=== PATIENT | female | born 1945 | race Caucasian/White ===

== ENCOUNTER 2018-06-12 09:46 | Inpatient (IN) | payer OTHER ==
[~2018-06-12] VITALS: Ht 167.6 cm; Wt 111.7 kg
[~2018-06-12 09:46] MED LIST: AMIT25; ASPI81EC; CEPH250SUA PO; CIPR500 PO; EZET10-40; GABA300 PO; GLIM2; GLIM4; INSLI75/25; INSR10I; INSULANI; LEVSOD75 PO; METF500; METF500 PO; METO50; POLY17UD PO; PRAV20 PO; RAMI2.5; RANI150; RANI150 PO; RXCODACESY PO; RXPHEN200 PO; TRAM50 PO; VALSARTAN-HCTZ1 EAC4 PO
[2018-06-12] MEDS ORDERED: Humulin R500 UNIT/1 IJ (09:56)
[2018-06-12] MEDS ORDERED: IRBESARTAN300 MG PO (09:56)
[2018-06-12] MEDS ORDERED: ROSU10TA PO (09:57)
[2018-06-12] MEDS ORDERED: ERGO400 PO (09:57)
[2018-06-12 11:51] LABS: BASOPHILS ABSOLUTE AUTO 0.06 K/mm3 (0.00-0.23); BASOPHILS PERCENT AUTO 0 % (0-2); EOSINOPHILS ABSOLUTE AUTO 0.02 K/mm3 (0.00-0.68); EOSINOPHILS PERCENT AUTO 0 % (0-6); Hematocrit 35.4 % (33.0-51.0); Hemoglobin 11.1 g/dL (11.5-16.0); IMMATURE GRAN ABSOLUTE AUTO 0.14 K/mm3 (0.00-0.10); IMMATURE GRAN PERCENT AUTO 1 % (0-1); LYMPHOCYTES ABSOLUTE AUTO 2.08 K/mm3 (0.84-5.20); LYMPHOCYTES PERCENT AUTO 14 % (21-46); MONOCYTES ABSOLUTE AUTO 1.23 K/mm3 (0.16-1.47); MONOCYTES PERCENT AUTO 9 % (4-13); Mean Corpuscular HGB 28.2 pg (26.0-34.0); Mean Corpuscular HGB Conc 31.4 g/dL (31.5-36.5); Mean Corpuscular Volume 90 fL (80-100); Mean Platelet Volume 9.5 fL (9.1-12.4); NEUTROPHILS ABSOLUTE AUTO 10.87 K/mm3 (1.96-9.15); NEUTROPHILS PERCENT AUTO 76 % (41-73); Platelet Count 204 K/mm3 (150-400); RDW Coefficient Variation 14.8 % (11.7-14.2); RDW Standard Deviation 48.7 fL (35.1-46.3); Red Blood Cell Count 3.94 M/mm3 (3.80-5.20)
[2018-06-12 12:14] LABS: Albumin, Blood 3.4 g/dL (3.4-5.0); Albumin/Globulin Ratio 0.9 (0.8-1.8); Bilirubin, Total 0.6 mg/dL (0.1-1.0); Bun/Creatinine Ratio 17.5 (12.0-20.0); Calcium, Blood 8.8 mg/dL (8.5-10.1); Creatinine, Blood 0.97 mg/dL (0.40-1.00); Globulin, Blood 3.8 g/dL (2.2-4.0); Potassium, Blood 4.1 mmol/L (3.5-5.5); Total Protein, Blood 7.2 g/dL (6.4-8.2)
[2018-06-12 12:28] LABS: Source, Urine Catheter
[2018-06-12 12:37] LABS: Bilirubin, Urine Neg (Neg); Blood, Urine 3+ (Neg); Glucose Qualitative, Urine 4+ (Neg); Ketones, Urine Neg (Neg); Leukocyte Esterase, Urine 3+ (Neg); Nitrite, Urine Pos (Neg); Protein, Urine 2+ (Neg); Specific Gravity, Urine 1.015 (1.003-1.022); Urobilinogen, Urine NORM (Normal)
[2018-06-12 12:43] LABS: Appearance, Urine Cloudy (Clear); Color, Urine Yellow (P-Yellow)
[2018-06-12 12:45] LABS: Red Blood Cells, Urine 0-2 /hpf (0-2); White Blood Cells, Urine TNTC /hpf (0-5)
[2018-06-12 12:46] LABS: Bacteria Many /hpf; Squamous Epithelial Cells Few /hpf (Few)
--- NOTE | 2018-06-12 13:24 | NUR ---
PT ARRIVED TO THE ROOM AT APPROXIMATELY 1305. PT ALERT AND ORIENTED. PT RATES PAIN AT 4/10 AND DENIES NEED FOR PAIN MEDICATION. PT'S IS AT THE BEDSIDE. VSS. WILL CONTINUE TO MONITOR.
--- NOTE | 2018-06-12 15:23 | NUR ---
DR. KATHLEEN ESPINOSA ON PT AT THIS TIME.
--- NOTE | 2018-06-12 18:36 | NUR ---
SHIFT SUMMARY PT HAS NOT REQUIRED PAIN MEDICATION SINCE ARRIVAL FROM ER. SHE HAS REMAINED ALERT AND ORIENTED. USES CALL LIGHT APPROPRIATELY. VSS. WILL MONITOR UNTIL REPORT TO ONCOMING RN.
--- NOTE | 2018-06-13 02:20 | NUR ---
MEDICATED FOR PAIN AND REPOSITIONED. AGREED TO TRY ICE PACKS. SAFETY MEASURES IN PLACE. WILL CONTINUE TO MONIOR.
[2018-06-13 05:14] LABS: BASOPHILS ABSOLUTE AUTO 0.04 K/mm3 (0.00-0.23); BASOPHILS PERCENT AUTO 0 % (0-2); EOSINOPHILS ABSOLUTE AUTO 0.06 K/mm3 (0.00-0.68); EOSINOPHILS PERCENT AUTO 1 % (0-6); Hematocrit 31.3 % (33.0-51.0); Hemoglobin 9.5 g/dL (11.5-16.0); IMMATURE GRAN PERCENT AUTO 1 % (0-1); LYMPHOCYTES ABSOLUTE AUTO 2.85 K/mm3 (0.84-5.20); LYMPHOCYTES PERCENT AUTO 29 % (21-46); MONOCYTES ABSOLUTE AUTO 1.48 K/mm3 (0.16-1.47); MONOCYTES PERCENT AUTO 15 % (4-13); Mean Corpuscular HGB 28.2 pg (26.0-34.0); Mean Corpuscular HGB Conc 30.4 g/dL (31.5-36.5); Mean Platelet Volume 9.6 fL (9.1-12.4); NEUTROPHILS ABSOLUTE AUTO 5.46 K/mm3 (1.96-9.15); NEUTROPHILS PERCENT AUTO 55 % (41-73); Platelet Count 204 K/mm3 (150-400); RDW Coefficient Variation 15.3 % (11.7-14.2); RDW Standard Deviation 52.3 fL (35.1-46.3); Red Blood Cell Count 3.37 M/mm3 (3.80-5.20); White Blood Cell Count 9.99 K/mm3 (4.00-11.30)
[2018-06-13 05:17] LABS: Mean Corpuscular Volume 93 fL (80-100)
[2018-06-13 05:40] LABS: Bun/Creatinine Ratio 15.3 (12.0-20.0); Calcium, Blood 8.1 mg/dL (8.5-10.1); Creatinine, Blood 1.31 mg/dL (0.40-1.00); Potassium, Blood 4.6 mmol/L (3.5-5.5)
--- NOTE | 2018-06-13 05:59 | NUR ---
NO CHANGES THIS SHIFT. PAIN WELL MANAGED WITH PRN PAIN MEDS. INTERMITTENT CONFUSION NOTED, PT WOULD ASK MULTIPLE TIMES WITHIN A FEW MINUTES IF THE POWER WAS STILL OUT. RIGHT KNEE IMMOBILIZER IN PLACE, LEAL CATH STILL PATENT. DENIES PAIN, DISCOMFORT, OR FURTHER NEEDS AT THIS TIME. SAFETY MEASURES IN PLACE. WILL CONTINUE TO MONITOR.
--- NOTE | 2018-06-13 06:21 | NUR ---
INADEQUATE URINRY OUTPUT NOTED AT 250ML OF CLOUDY CONCENTRATED DARK ROSI URINE WITH SEDIMENT. WILL INFORM MD AND ONCOMING SHIFT.
--- NOTE | 2018-06-13 12:27 | NUR ---
PT REPORTS TAKING CARE OF OWN INSULIN, DOES NOT WANT ANY EXTRA INSULIN. FAMILY/FRIENDS PRESENT.
--- NOTE | 2018-06-13 16:22 | NUR ---
DR KELLOGG HERE TO SEE PT.
--- NOTE | 2018-06-13 18:02 | NUR ---
SHIFT SUMMARY PT EATING AND DRINKING WITHOUT DIFF. PT MANAGING OWN INSULIN WITH PT'S OWN INSULIN PUMP. DR WANG AND DR KELLOGG HERE TO SEE PT. PT DID NOT HAVE SURGERY TODAY POWER IS RUNNING ON GENERATORS TODAY. PT TO BE NPO AFTER MIDNIGHT IN HOPES THAT POWER WILL BE RESTORED BY TOMMORROW.
--- NOTE | 2018-06-13 20:20 | NUR ---
MEDICATED FOR PAIN PER MD ORDERS, SAFETY MEASURES IN PLACE. WILL CONTINUE TO MONITOR.
--- NOTE | 2018-06-14 04:05 | NUR ---
MEDICATED FOR PAIN PER MD ORDERS, SAFETY MEASURES IN PLACE. WILL CONTINUE TO MONITOR.
[2018-06-14 04:35] LABS: BASOPHILS ABSOLUTE AUTO 0.02 K/mm3 (0.00-0.23); BASOPHILS PERCENT AUTO 0 % (0-2); EOSINOPHILS PERCENT AUTO 1 % (0-6); Hematocrit 27.8 % (33.0-51.0); Hemoglobin 8.4 g/dL (11.5-16.0); IMMATURE GRAN PERCENT AUTO 1 % (0-1); LYMPHOCYTES ABSOLUTE AUTO 2.24 K/mm3 (0.84-5.20); LYMPHOCYTES PERCENT AUTO 28 % (21-46); MONOCYTES ABSOLUTE AUTO 1.39 K/mm3 (0.16-1.47); MONOCYTES PERCENT AUTO 17 % (4-13); Mean Corpuscular HGB 28.6 pg (26.0-34.0); Mean Corpuscular HGB Conc 30.2 g/dL (31.5-36.5); Mean Corpuscular Volume 95 fL (80-100); Mean Platelet Volume 9.1 fL (9.1-12.4); NEUTROPHILS PERCENT AUTO 52 % (41-73); Platelet Count 143 K/mm3 (150-400); RDW Coefficient Variation 15.7 % (11.7-14.2); RDW Standard Deviation 54.2 fL (35.1-46.3); Red Blood Cell Count 2.94 M/mm3 (3.80-5.20); White Blood Cell Count 8.05 K/mm3 (4.00-11.30)
--- NOTE | 2018-06-14 04:52 | NUR ---
NO CHANGES THIS SHIFT. PAIN WELL MANAGED WITH PRN PAIN MEDS. INTERMITTENT CONFUSION NOTED. RIGHT KNEE IMMOBILIZER IN PLACE, LEAL CATH STILL PATENT, SMALL AMOUNT OF THICK MEJIA LIQUID DRAINING TO GRAVITY. DENIES PAIN, DISCOMFORT, OR FURTHER NEEDS AT THIS TIME. SAFETY MEASURES IN PLACE. WILL CONTINUE TO MONITOR.
[2018-06-14 05:12] LABS: Bun/Creatinine Ratio 15.4 (12.0-20.0); Calcium, Blood 7.9 mg/dL (8.5-10.1); Creatinine, Blood 1.3 mg/dL (0.40-1.00); Potassium, Blood 4.4 mmol/L (3.5-5.5)
--- NOTE | 2018-06-14 12:03 | NUR ---
PT TO DAYSURGERY WITH DAYSURGERY STAFF. FAMILY PRESENT.
--- NOTE | 2018-06-14 14:10 | NUR ---
ASSUMED CARE OF PATIENT RECIEVED REPORT FROM Marie LUNA. NO CHANGE IN ASSESSMENT NEW CBG DONE AND RECORDED.
--- NOTE | 2018-06-14 17:34 | NUR ---
SHIFT SUMMARY PT OUT OF ROOM FOR PROCEDURE AT THIS TIME. PT BEEN ASSISTED WITH ADL'S PRN. PT BEEN REPOSITIONED. FAMILY BEEN IN TO SEE PT AND BROUGHT HOME MED WHICH WAS PLACED IN LOCKED DRAWER OUTSIDE OF ROOM AND NOTE PLACED ON PT'S PHONE WHICH WAS IN THE ROOM AND NOTE PLACED ON DOOR OF ROOM.
--- NOTE | 2018-06-14 19:25 | NUR ---
FT WAS BOTHERING PT SO IT WAS REPLACED WITH N/C BIOX DROPPED TO 86% SO I PLACE OXIMIZER AT 10L PT ABLE TO TOLERATE THIS AND BIOX NOW AT 93% DR MARTELL AWARE
[2018-06-15 05:09] LABS: BASOPHILS ABSOLUTE AUTO 0.01 K/mm3 (0.00-0.23); BASOPHILS PERCENT AUTO 0 % (0-2); EOSINOPHILS PERCENT AUTO 0 % (0-6); Hematocrit 25.4 % (33.0-51.0); Hemoglobin 7.6 g/dL (11.5-16.0); IMMATURE GRAN ABSOLUTE AUTO 0.05 K/mm3 (0.00-0.10); IMMATURE GRAN PERCENT AUTO 1 % (0-1); LYMPHOCYTES ABSOLUTE AUTO 1.01 K/mm3 (0.84-5.20); LYMPHOCYTES PERCENT AUTO 11 % (21-46); MONOCYTES ABSOLUTE AUTO 1.22 K/mm3 (0.16-1.47); MONOCYTES PERCENT AUTO 13 % (4-13); Mean Corpuscular HGB 28.1 pg (26.0-34.0); Mean Corpuscular HGB Conc 29.9 g/dL (31.5-36.5); Mean Corpuscular Volume 94 fL (80-100); Mean Platelet Volume 9.5 fL (9.1-12.4); NEUTROPHILS ABSOLUTE AUTO 6.93 K/mm3 (1.96-9.15); NEUTROPHILS PERCENT AUTO 75 % (41-73); Platelet Count 140 K/mm3 (150-400); RDW Coefficient Variation 15.2 % (11.7-14.2); RDW Standard Deviation 52.3 fL (35.1-46.3); White Blood Cell Count 9.22 K/mm3 (4.00-11.30)
[2018-06-15 05:25] LABS: Bun/Creatinine Ratio 14.5 (12.0-20.0); Calcium, Blood 8.1 mg/dL (8.5-10.1); Creatinine, Blood 1.1 mg/dL (0.40-1.00); Potassium, Blood 4.5 mmol/L (3.5-5.5)
--- NOTE | 2018-06-15 06:17 | NUR ---
NO CHANGES THIS SHIFT. PAIN WELL MANAGED WITH PRN PAIN MEDS, MEDICATED 2X THIS SHIFT. RIGHT KNEE IMMOBILIZER IN PLACE OVER KEVIN WRAP. DENIES PAIN, DISCOMFORT, OR FURTHER NEEDS AT THIS TIME. SAFETY MEASURES IN PLACE. WILL CONTINUE TO MONITOR.
--- NOTE | 2018-06-15 12:15 | NUR ---
DR. SHETTY NOTIFIED OF DECREASED H&H. ORDER RECIEVED FOR 1 UNIT PRBC. HOME INSULIN ROUTINE RESTARTED. WILL CONTINUE TO MONITOR.
--- NOTE | 2018-06-15 18:59 | NUR ---
SHIFT SUMMARY PAIN HAS BEEN MANAGED WITH PO PAIN MEDICATION THIS SHIFT. PT WAS ABLE TO STAND AT THE EDGE OF THE BED WITH A 2 PERSON MAX ASSIST. INTAKE IS ADEQUATE. VSS. WILL CONTINUE TO MONITOR UNTIL REPORT TO ONCOMING RN.
--- NOTE | 2018-06-16 00:30 | NUR ---
BP: PT BP TRENDING HYPO 80'S-90'S/30-50'S, HR 70'S. PT ASYMPTOMATIC. CALL PLACED TO MD, VITALS, UO, AND HX REV W/. NEW ORDER FOR IVF REC. WILL MED AND MONITOR.
[2018-06-16 05:16] LABS: BASOPHILS ABSOLUTE AUTO 0.04 K/mm3 (0.00-0.23); BASOPHILS PERCENT AUTO 0 % (0-2); EOSINOPHILS ABSOLUTE AUTO 0.05 K/mm3 (0.00-0.68); EOSINOPHILS PERCENT AUTO 1 % (0-6); Hematocrit 26.5 % (33.0-51.0); Hemoglobin 8.1 g/dL (11.5-16.0); IMMATURE GRAN ABSOLUTE AUTO 0.08 K/mm3 (0.00-0.10); IMMATURE GRAN PERCENT AUTO 1 % (0-1); LYMPHOCYTES ABSOLUTE AUTO 2.16 K/mm3 (0.84-5.20); LYMPHOCYTES PERCENT AUTO 21 % (21-46); MONOCYTES ABSOLUTE AUTO 1.31 K/mm3 (0.16-1.47); MONOCYTES PERCENT AUTO 13 % (4-13); Mean Corpuscular HGB Conc 30.6 g/dL (31.5-36.5); Mean Corpuscular Volume 92 fL (80-100); Mean Platelet Volume 9.9 fL (9.1-12.4); NEUTROPHILS ABSOLUTE AUTO 6.58 K/mm3 (1.96-9.15); NEUTROPHILS PERCENT AUTO 64 % (41-73); Platelet Count 172 K/mm3 (150-400); RDW Coefficient Variation 15.3 % (11.7-14.2); RDW Standard Deviation 51.8 fL (35.1-46.3); Red Blood Cell Count 2.89 M/mm3 (3.80-5.20); White Blood Cell Count 10.22 K/mm3 (4.00-11.30)
[2018-06-16 05:37] LABS: Calcium, Blood 8.3 mg/dL (8.5-10.1); Creatinine, Blood 1.47 mg/dL (0.40-1.00); Potassium, Blood 3.9 mmol/L (3.5-5.5)
--- NOTE | 2018-06-16 06:21 | NUR ---
POD 2 S/P RIGHT DISTAL FEMUR REPAIR. PT BP REMAINED HYPO T/O NIGHT; PT ASYMPTOMATIC, MD AWARE, IVF CONT PER ORDERS. O2 DEC TO 3-4L NC W/SATS 93%, WERE NOTED 86% ON RA; DEEP BREATHING AND I/S USE REINFORCED. DRESSING CDI, IMMOBILIZER IN PLACE. CAP REFILL WNL. BLOOD SUGAR NOTED 59 THIS AM, PT REP BLURRED VISION R/T LOW CBG. APPLE JUICE AND SNACK GIVEN, GLUCOSE NOTED INC TO 88 W/AM LAB DRAW, PT REP BLURRED VISION RESOLVED. PAIN MGD W/1 OXYCODONE W/REP RELIEF. PT REPOSITIONED FOR COMFORT. PLAN TO D/C LEAL CATH THIS AM. PT USING CALL LIGHT FOR ASSISTANCE, WILL CONT TO MONITOR UNTIL REP GIVEN TO ONCOMING RN.
--- NOTE | 2018-06-16 07:04 | NUR ---
URINE: PT URINE NOTED CRANBERRY COLORED W/PURULANT APPEARING DRNG THIS AM. URINE OUTPUT DEC, 250ML THIS SHIFT. PT IS NOTED TO HAVE CURRENT UTI W/ABX TX ORDERED. LEAL LEFT IN THIS AM FOR MD BOBBY. LIANNE RN AWARE.
--- NOTE | 2018-06-16 08:05 | NUR ---
BLOOD GLUCOSE BLOOD GLUCOSE OF 110 THIS AM. PT STATED THAT WAS TO LOW TO TAKE HER SCHEDULED DOSE OF [address] WANG WAS NOTIFIED. ORDER RECIEVED TO DECREASE BASAL RATE; PT WAS ABLE TO ACCOMPLISH THIS. INSULIN HELD THIS AM PER ORDER AND BOLUS DOSES DECREASED. WILL CONTINUE TO MONITOR.
--- NOTE | 2018-06-16 10:44 | NUR ---
DR. SHETTY NOTIFIED OF GENERALIZED EDEMA AND PURULENT URINE. WILL STRAIGHT CATH FOR URINE SAMPLE PER ORDER.
[2018-06-16 11:44] LABS: Source, Urine Catheter
[2018-06-16 11:47] LABS: Bilirubin, Urine Neg (Neg); Blood, Urine 5+ (Neg); Glucose Qualitative, Urine Neg (Neg); Ketones, Urine Neg (Neg); Leukocyte Esterase, Urine 3+ (Neg); Nitrite, Urine Neg (Neg); Protein, Urine 3+ (Neg); Urobilinogen, Urine NORM (Normal)
[2018-06-16 12:10] LABS: Appearance, Urine Hazy (Clear); Bacteria Few /hpf; Color, Urine Yellow (P-Yellow); Red Blood Cells, Urine TNTC /hpf (0-2); Squamous Epithelial Cells Not Seen /hpf (Few); White Blood Cells, Urine TNTC /hpf (0-5)
--- NOTE | 2018-06-16 17:47 | NUR ---
SHIFT SUMMARY PAIN HAS BEEN MANAGED WITH PO PAIN MEDICATION THIS SHIFT. PT WAS ABLE TO STAND AT THE EDGE OF THE BED WITH THERAPY TODAY, SHE WAS UNABLE TO TRANSFER TO THE CHAIR. THERAPY RECOMMENDED LIFT TRANSFER IN ORDER TO GET PT OOB. VSS. WILL MONITOR UNTIL REPORT TO ONCOMING RN.
--- NOTE | 2018-06-16 18:44 | NUR ---
VOID PT HAS VOIDED X1 SINCE CATHETER WAS REMOVED. ATTEMPTED TO OBTAIN PVR, UNABLE TO LOCATE BLADDER WITH BLADDER SCANNER DESPITE NUMEROUS ATTEMPTS. PT REPORTED FEELING LIKE SHE HAD EMPTIED HER BLADDER. WILL CONTINUE TO MONITOR.
[2018-06-17 04:37] LABS: BASOPHILS ABSOLUTE AUTO 0.04 K/mm3 (0.00-0.23); BASOPHILS PERCENT AUTO 1 % (0-2); EOSINOPHILS ABSOLUTE AUTO 0.19 K/mm3 (0.00-0.68); EOSINOPHILS PERCENT AUTO 2 % (0-6); Hemoglobin 7.8 g/dL (11.5-16.0); IMMATURE GRAN ABSOLUTE AUTO 0.16 K/mm3 (0.00-0.10); IMMATURE GRAN PERCENT AUTO 2 % (0-1); LYMPHOCYTES ABSOLUTE AUTO 1.99 K/mm3 (0.84-5.20); LYMPHOCYTES PERCENT AUTO 23 % (21-46); MONOCYTES ABSOLUTE AUTO 1.06 K/mm3 (0.16-1.47); MONOCYTES PERCENT AUTO 13 % (4-13); Mean Corpuscular HGB 28.1 pg (26.0-34.0); Mean Corpuscular Volume 94 fL (80-100); Mean Platelet Volume 8.9 fL (9.1-12.4); NEUTROPHILS ABSOLUTE AUTO 5.06 K/mm3 (1.96-9.15); NEUTROPHILS PERCENT AUTO 60 % (41-73); Platelet Count 178 K/mm3 (150-400); RDW Coefficient Variation 15.7 % (11.7-14.2); RDW Standard Deviation 54.1 fL (35.1-46.3); Red Blood Cell Count 2.78 M/mm3 (3.80-5.20)
[2018-06-17 04:56] LABS: Anion Gap 7 mmol/L (6-16); Blood Urea Nitrogen 24 mg/dL (8-24); Bun/Creatinine Ratio 20.3 (12.0-20.0); CO2, Blood 25 mmol/L (21-32); Chloride, Blood 111 mmol/L (98-108); Creatinine, Blood 1.18 mg/dL (0.40-1.00); Glomerular Filtration Rate 48 (60-); Glucose, Blood 167 mg/dL (70-99); Potassium, Blood 4.1 mmol/L (3.5-5.5); Sodium, Blood 143 mmol/L (136-145); Vancomycin, Random 11.7 ug/mL
--- NOTE | 2018-06-17 04:59 | NUR ---
SHIFT SUMMARY PT IS POD 3 R FEMUR PINNING. KNEE IMMOBILIZER IN PLACE. PT IS A&O, ABLE TO MAKE NEEDS KNOWN. MEDICATED FOR PAIN X1 PER EMAR. PT USES THE BEDPAN WITH ASSISTANCE. URINE IS LESS RED AND MORE ORANGE AT THIS TIME. PT MAINTAINING ON 4L VIA NC. NYSTATIN TO SKIN FOLDS. PT IS A LIFT FOR TRANSFERS. WILL CTM UNTIL PASS TO NEXT SHIFT.
--- NOTE | 2018-06-17 09:40 | NUR ---
DR. OH IN TO ROUND ON PT. NOTIFIED OF H+H. NEW ORDERS BEING PLACED.
--- NOTE | 2018-06-17 16:59 | NUR ---
SHIFT SUMMARY NO ACUTE CHANGES TODAY. VSS. PT DID RECEIVE 1 UNIT PRBCS FOR HEMOGLOBIN <7. RECEIVING 1 ROXICODONE FOR PAIN PRN. KNEE IMMOBILIZER IN PLACE AND DRESSINGS REMAIN CDI. PT UP WITH 2 MAX ASSIST USING GAIT BELT TO STAND PIVOT TO CHAIR TODAY. ON 4L NC TO MAINTAIN O2 GREATER THAN 90%. PLAN IS FOR SNF TOMORROW. PT USES CALL LIGHT APPROPRIATELY.
[2018-06-18 04:54] LABS: BASOPHILS ABSOLUTE AUTO 0.04 K/mm3 (0.00-0.23); BASOPHILS PERCENT AUTO 1 % (0-2); EOSINOPHILS ABSOLUTE AUTO 0.17 K/mm3 (0.00-0.68); EOSINOPHILS PERCENT AUTO 2 % (0-6); Hematocrit 28.6 % (33.0-51.0); Hemoglobin 8.7 g/dL (11.5-16.0); IMMATURE GRAN ABSOLUTE AUTO 0.22 K/mm3 (0.00-0.10); IMMATURE GRAN PERCENT AUTO 3 % (0-1); LYMPHOCYTES ABSOLUTE AUTO 1.91 K/mm3 (0.84-5.20); LYMPHOCYTES PERCENT AUTO 25 % (21-46); MONOCYTES ABSOLUTE AUTO 1.01 K/mm3 (0.16-1.47); MONOCYTES PERCENT AUTO 13 % (4-13); Mean Corpuscular HGB 28.3 pg (26.0-34.0); Mean Corpuscular HGB Conc 30.4 g/dL (31.5-36.5); Mean Corpuscular Volume 93 fL (80-100); Mean Platelet Volume 9.5 fL (9.1-12.4); NEUTROPHILS ABSOLUTE AUTO 4.36 K/mm3 (1.96-9.15); NEUTROPHILS PERCENT AUTO 57 % (41-73); Platelet Count 204 K/mm3 (150-400); RDW Coefficient Variation 15.1 % (11.7-14.2); RDW Standard Deviation 51.8 fL (35.1-46.3); Red Blood Cell Count 3.07 M/mm3 (3.80-5.20); White Blood Cell Count 7.71 K/mm3 (4.00-11.30)
--- NOTE | 2018-06-18 04:57 | NUR ---
SHIFT SUMMARY PT A&O X4 T/O SHIFT. VSS; NO ACUTE CHANGES. POD#4 R FEMORAL FX NAILING; DRESSING CDI; IMMOBILIZER TO RLE, PPPX4. PAIN MANGED PER EMAR. ICE TO RLE PT TOLERATED. 3.5L O2 VIA NC; PT DENIES SOB AT REST THIS AM. PT ABLE TO MAKE SLIGHT POSITIONAL ADJUSTMENTS IN BED INDEPENDENTLY. REPOSITIONED WITH ASSIST. BLOOD GLUCOSE MANGED PER ORDRES. CALL LIGHT IN REACH;PT DEMONSTRATES USE. WCTM UNTIL REPORT TO DAY SHIFT RN.
[2018-06-18 05:11] LABS: Albumin, Blood 2.2 g/dL (3.4-5.0); Anion Gap 6 mmol/L (6-16); Blood Urea Nitrogen 18 mg/dL (8-24); Bun/Creatinine Ratio 20.1 (12.0-20.0); CO2, Blood 27 mmol/L (21-32); Calcium, Blood 8.4 mg/dL (8.5-10.1); Chloride, Blood 111 mmol/L (98-108); Glomerular Filtration Rate >60 (60-); Glucose, Blood 156 mg/dL (70-99); Phosphorus, Blood 3.1 mg/dL (2.5-4.9); Potassium, Blood 3.8 mmol/L (3.5-5.5); Sodium, Blood 144 mmol/L (136-145)
--- NOTE | 2018-06-18 17:24 | NUR ---
SHIFT SUMMARY NO ACUTE CHANGES THIS SHIFT. IMMOBILIZER REMAINS IN PLACE AND DRESSING IS CDI. PT RECEIVING 1 ROXICODONE FOR PAIN PRN. PT WAS UP IN CHAIR FOR MOST OF SHIFT. 3 PERSON MAX ASSIST USING WALKER AND GAIT BELT TO STAND AND PIVOT WITH TRANSFER. VOIDING VIA BSC. BOWEL CARE STARTED THIS SHIFT. HOME O2 EVAL COMPLETE PER RT. PLAN IS FOR PT TO GO TO SNF TOMORROW. PT USES CALL LIGHT APPROPRIATELY.
--- NOTE | 2018-06-19 04:22 | NUR ---
SHIFT SUMMARY PT A&O X4 T/O SHIFT. NO ACUTE CHANGES. POD# 5 ORIF DISTAL FEMUR. DRESSING TO RLE CDI; IMMOBILIZER IN PLACE; PPPX4; BRISK CAP REFILL. PAIN MANGED PER EMAR. CONT. OXIMETRY IN PLACE. O2 VIA NC AT 4L; PT DENIES SOB. MEPILEX TO BILAT HEELS. CALL LIGHT IN REACH; PT DEMONSTRATES USE. WCTM UNTIL REPORT TO DAY SHIFT RN.
[2018-06-19 08:53] LABS: Vancomycin, Trough 11.8 ug/mL (5.0-10.0)
--- NOTE | 2018-06-19 13:15 | NUR ---
DISCHARGE: PT TRANSFER TO [facility] AT THIS TIME. IV DC'D WNL. PT HOME MEDS AND BELONGINGS SENT WITH HER. AT BEDSIDE. REPORT CALLED TO JEREMY PIERSON. PT LEFT VIA [facility].
== END 2018-06-19 13:15 | DRG 481 ==
LOC: ER 09:46 → SURS 11:07
PROVIDERS: Emergency Medicine; Family Medicine; Internal Medicine; Internal Medicine Endocrinology, Diabetes & Metabolism; Orthopaedic Surgery; ADMIT Internal Medicine
PROC: 0QS606Z Reposition Right Upper Femur with Intramedullary Internal Fixation Device, Open Approach (ICD-10-PCS; principal; 2018-06-14 11:45)
PROC: 30233N1 Transfusion of Nonautologous Red Blood Cells into Peripheral Vein, Percutaneous Approach (ICD-10-PCS; 2018-06-15)
DX: S72.301A Unspecified fracture of shaft of right femur, initial encounter for closed fracture (principal); D62 Acute posthemorrhagic anemia; N39.0 Urinary tract infection, site not specified; J98.11 Atelectasis; E11.65 Type 2 diabetes mellitus with hyperglycemia; E03.9 Hypothyroidism, unspecified; E78.5 Hyperlipidemia, unspecified; E88.81 Metabolic syndrome and other insulin resistance; G47.33 Obstructive sleep apnea (adult) (pediatric); I12.9 Hypertensive chronic kidney disease with stage 1 through stage 4 chronic kidney disease, or unspecified chronic kidney disease; E11.22 Type 2 diabetes mellitus with diabetic chronic kidney disease; N18.3 Chronic kidney disease, stage 3 (moderate); Z96.41 Presence of insulin pump (external) (internal); Z99.81 Dependence on supplemental oxygen; R09.02 Hypoxemia; Z68.38 Body mass index [BMI] 38.0-38.9, adult; E66.01 Morbid (severe) obesity due to excess calories; B96.1 Klebsiella pneumoniae [K. pneumoniae] as the cause of diseases classified elsewhere; W01.0XXA Fall on same level from slipping, tripping and stumbling without subsequent striking against object, initial encounter; Y92.002 Bathroom of unspecified non-institutional (private) residence as the place of occurrence of the external cause
CPT/HCPCS: 29505; 36415; 51702; 71045; 71046; 73502; 73552; 73560-RT; 80048; 80053; 80069; 80202; 81001; 82947; 83880; 85025; 86850; 86900; 86901; 86923; 87077; 87086; 87186; 93005; 93010; 94761; 94762; 96374-59; 97110; 97116; 97162; 97530; 99285-25; C1713; C1769; C9113; J0330; J0690; J1100; J1170; J1650; J1956; J2250; J2370; J2405; J3010; J3370; J3480; J7030; J7050; J7120; P9016

== ENCOUNTER → 2018-09-02 | Outpatient (CLI) | payer OTHER ==
[~2018-09-02] MED LIST changes: +ERGO400 PO; +Humulin R500 UNIT/1 IJ; +IRBESARTAN300 MG PO; +ROSU10TA PO
== END | disposition home or self-care (01) ==
LOC: LAB SHORT 08:30 → LAB EV 08:30
DX: R32 Unspecified urinary incontinence (principal)
CPT/HCPCS: 87077; 87086; 87186

== ENCOUNTER → 2022-08-12 | Outpatient (CLI) | payer OTHER ==
[2022-08-12 16:11] LABS: Alanine Aminotransfer (ALT/SGP 35 U/L (12-78); Albumin, Blood 3.2 g/dL (3.4-5.0); Albumin/Globulin Ratio 0.7 (0.8-1.8); Alk Phos 197 U/L (40-126); Anion Gap 10 mmol/L (6-16); Aspartate Aminotrans (AST/SGOT 23 U/L (12-37); Bilirubin, Total 0.4 mg/dL (0.1-1.0); Blood Urea Nitrogen 55 mg/dL (8-24); Bun/Creatinine Ratio 28.5 (12.0-20.0); CHOL/HDL RATIO 3.9; CO2, Blood 21 mmol/L (21-32); Calcium, Blood 8.9 mg/dL (8.5-10.1); Chloride, Blood 107 mmol/L (98-108); Cholesterol 77 mg/dL (50-200); Creatinine, Blood 1.93 mg/dL (0.40-1.00); Globulin, Blood 4.4 g/dL (2.2-4.0); Glomerular Filtration Rate 27 (60-); Glucose, Blood 147 mg/dL (70-99); HDL Cholesterol 20 mg/dL (>39); LDL/HDL RATIO 0.4; Low Density Lipoprotein Chol 8 mg/dL (<110); Potassium, Blood 5.2 mmol/L (3.5-5.5); Sodium, Blood 138 mmol/L (136-145); Thyroid Stimulating Hormone 1.592 uIU/mL (0.360-4.800); Total Protein, Blood 7.6 g/dL (6.4-8.2); Triglycerides 247 mg/dL (30-160); Very Low Density Lipoprot Chol 49 mg/dL (6-32)
[2022-08-12 17:50] LABS: Hematocrit 34.8 % (33.0-51.0); Hemoglobin 10.7 g/dL (11.5-16.0); Mean Corpuscular HGB 27.6 pg (26.0-34.0); Mean Corpuscular HGB Conc 30.7 g/dL (31.5-36.5); Mean Corpuscular Volume 90 fL (80-100); Mean Platelet Volume 8.6 fL (9.1-12.4); Platelet Count 375 K/mm3 (150-400); RDW Coefficient Variation 15.3 % (11.7-14.2); RDW Standard Deviation 50.4 fL (35.1-46.3); Red Blood Cell Count 3.88 M/mm3 (3.80-5.20); White Blood Cell Count 11.11 K/mm3 (4.00-11.30)
[2022-08-12 18:18] LABS: BASOPHILS PERCENT MAN 0 % (0-2); EOSINOPHILS ABSOLUTE MAN 0.22 K/mm3 (0.00-0.68); EOSINOPHILS PERCENT MAN 2 % (0-6); LYMPHOCYTES ABSOLUTE MAN 2.66 K/mm3 (0.84-5.20); LYMPHOCYTES PERCENT MAN 24 % (21-46); METAMYELOCYTE ABSOLUTE MAN 0.33 K/mm3 (0.00-0.00); METAMYELOCYTE PERCENT MAN 3 % (0-0); MONOCYTES ABSOLUTE MAN 0.88 K/mm3 (0.16-1.47); MONOCYTES PERCENT MAN 8 % (4-13); MYELOCYTE ABSOLUTE MAN 0.33 K/mm3 (0.00-0.00); MYELOCYTE PERCENT MAN 3 % (0-0); NEUTROPHILS ABSOLUTE MAN 6.66 K/mm3 (1.96-9.15); SEG NEUTROPHILS PERCENT MAN 60 % (41-73); TOTAL CELLS COUNTED 100
== END | disposition home or self-care (01) ==
LOC: LAB SHORT 15:47
PROVIDERS: Physician Assistant
DX: E11.65 Type 2 diabetes mellitus with hyperglycemia (principal); E11.3313 Type 2 diabetes mellitus with moderate nonproliferative diabetic retinopathy with macular edema, bilateral; E11.51 Type 2 diabetes mellitus with diabetic peripheral angiopathy without gangrene; E11.22 Type 2 diabetes mellitus with diabetic chronic kidney disease; E11.69 Type 2 diabetes mellitus with other specified complication; E11.49 Type 2 diabetes mellitus with other diabetic neurological complication; I10 Essential (primary) hypertension; Z79.4 Long term (current) use of insulin
CPT/HCPCS: 80053; 80061; 83036; 84443; 85025

== ENCOUNTER 2023-08-10 13:55 | Inpatient (IN) | payer OTHER ==
[~2023-08-10] VITALS: Ht 167.6 cm; Wt 95.0 kg
[~2023-08-10 13:55] MED LIST changes: +HUMULIN R500 UNIT/2; -Humulin R500 UNIT/1 IJ; -METO50; +METO50 PO
[2023-08-10] MEDS ORDERED: Insulin Regular 100 Unit/ML 1ML Dose IV ONE (15:25)
[2023-08-10] MEDS ORDERED: Sodium Bicarb 8.4% 1 MEQ/ML 50 ML Vial IV ONE (15:25)
[2023-08-10] MEDS ORDERED: Albuterol 2.5 MG/3 ML VIAL INH SCH (15:25)
[2023-08-10] MEDS ORDERED: Calcium Gluconate 10% 100 MG/ML INJ IV ONE (15:25)
[2023-08-10] MEDS ORDERED: Dextrose 50% 50 ML Syringe IV ONE (15:30)
[2023-08-10] MEDS ORDERED: Sodium Bicarb 8.4% Inj 100 MEQ in Sodium Chloride 0.45% 1,000 ML IV SCH (16:55)
[2023-08-10] MEDS ORDERED: Darbepoetin Alfa In Albumn Sol 40 MCG/0.4 ML SC SCH (18:00)
[2023-08-10] MEDS ORDERED: OXYB5 PO (18:44)
[2023-08-10] MEDS ORDERED: ROSU10TA PO (18:46)
--- NOTE | 2023-08-10 19:42 | NUR ---
NEW ADMIT PATIENT ADMITTED TO ROOM 301 FROM THE ER. PATIENT ARRIVED VIA WHEELCHAIR AND ONE PERSON TRANSPORT. PATIENT HAS PERSONAL WALKER.
[2023-08-10 19:48] VITALS: BP 129/52
[2023-08-10] MEDS ORDERED: OMEP20ER PO (20:19)
[2023-08-10] MEDS ORDERED: Aspir 8181 MG PO (20:21)
[2023-08-10] MEDS ORDERED: IRON18 MG PO (20:22)
[2023-08-10] MEDS ORDERED: Sodium Zirconium Cyclosilicate 10 GM Packet PO SCH (21:00)
--- NOTE | 2023-08-10 23:44 | NUR ---
HOSPITALIST CONTACTED HOSPITALIST CONTACTED FOR PATIENTS INSULIN PUMP. RADHA POTTER APPROVED FOR PATIENT TO HAVE HER INSULIN PUMP ON WITH THE USE OF BASAL RATE NOT BOLUS. CONTINUE TO MONITOR CBGs AC/HS AT THIS TIME.
[2023-08-11] VITALS (8 sets, daily range): BP systolic 111–142; BP diastolic 44–59
--- NOTE | 2023-08-11 04:21 | NUR ---
SHIFT SUMMARY. PATIENT IS AOX4, SBA TO BATHROOM, ADMITTED FOR HYPERKALEMIA. PATIENT REPORTS URINATING BLOOD. PATIENTS URINE HAS BEEN RED IN COLOR. PATIENT STATES SOB WITH EXERTION. PATIENT HAVING TREMORS THAT ARE IMPROVING SINCE ADMITTANCE TO THE FLOOR. PATIENT UP T/O NIGHT WITH DIFFICULTY SLEEPING; ASSESSED PATIENTS INSOMNIA-PATIENT REPORTS THAT SHE DOES NOT HAVE TROUBLE SLEEPING AND THAT SHE BELIEVES IT TO BE JUST BEING IN THE HOSPITAL. PATIENT DENIED A NEED FOR MEDICATION TO HELP WITH SLEEP. PATIENT DENIES PAIN. PATIENT IS PLEASANT AND COOPERATIVE WITH CARE. TELE IS ON WITH LEADS IN PLACE; PATIENT RUNNING SINUS RHYTHM IN THE 70'S. BED IS LOCKED IN THE LOWEST POSITION [facility] CALL LIGHT IN REACH. NO S/S OF DISTRESS. CARE IS ONGOING.
[2023-08-11 05:51] LABS: BASOPHILS ABSOLUTE AUTO 0.04 K/mm3 (0.00-0.23); BASOPHILS PERCENT AUTO 1 % (0-2); EOSINOPHILS ABSOLUTE AUTO 0.11 K/mm3 (0.00-0.68); EOSINOPHILS PERCENT AUTO 2 % (0-6); Hematocrit 19.4 % (33.0-51.0); IMMATURE GRAN ABSOLUTE AUTO 0.28 K/mm3 (0.00-0.10); IMMATURE GRAN PERCENT AUTO 4 % (0-1); LYMPHOCYTES PERCENT AUTO 25 % (21-46); MONOCYTES PERCENT AUTO 16 % (4-13); Mean Corpuscular HGB 26.8 pg (26.0-34.0); Mean Corpuscular HGB Conc 30.9 g/dL (31.5-36.5); Mean Corpuscular Volume 87 fL (80-100); Mean Platelet Volume 8.7 fL (9.1-12.4); NEUTROPHILS PERCENT AUTO 53 % (41-73); Platelet Count 280 K/mm3 (150-400); RDW Coefficient Variation 17.2 % (11.7-14.2); RDW Standard Deviation 54.4 fL (35.1-46.3); Red Blood Cell Count 2.24 M/mm3 (3.80-5.20); White Blood Cell Count 6.43 K/mm3 (4.00-11.30)
--- NOTE | 2023-08-11 06:23 | NUR ---
HOSPITALIST NOTIFIED [place] Hgb 6.0. DR. HOPE ORDERED FOR 1 UNIT OF PRBC. ORDER IN, BLOOD CONSENT SIGNED IN CHART.
[2023-08-11 06:33] LABS: Albumin, Blood 2.4 g/dL (3.4-5.0); Anion Gap 11 mmol/L (3-11); Blood Urea Nitrogen 74 mg/dL (8-24); Bun/Creatinine Ratio 24.3 (12.0-20.0); CO2, Blood 22 mmol/L (21-32); Calcium, Blood 8.6 mg/dL (8.5-10.1); Chloride, Blood 113 mmol/L (98-108); Creatinine, Blood 3.05 mg/dL (0.40-1.00); Glomerular Filtration Rate 15 (60-); Glucose, Blood 132 mg/dL (70-99); Magnesium, Blood 1.2 mg/dL (1.6-2.4); Phosphorus, Blood 4.4 mg/dL (2.5-4.9); Potassium, Blood 5.1 mmol/L (3.5-5.5); Sodium, Blood 141 mmol/L (136-145)
[2023-08-11] MEDS ORDERED: Sodium Bicarb 8.4% Inj 100 MEQ in Sodium Chloride 0.45% 1,000 ML IV SCH (08:10)
[2023-08-11] MEDS ORDERED: Heparin Sodium,Porcine 5,000 UNIT/0.5 ML SDV SC SCH (09:00)
[2023-08-11] MEDS ORDERED: Sodium Zirconium Cyclosilicate 10 GM Packet PO SCH (09:00)
[2023-08-11] MEDS ORDERED: NS 500 ML IV SCH (10:10)
[2023-08-11] MEDS ORDERED: IRBESARTAN150 M3 PO (12:10)
[2023-08-11] MEDS ORDERED: SYNTHROID88 MCG PO (12:11)
--- NOTE | 2023-08-11 15:39 | NUR ---
Upon receiving a referral for spiritual care, I visited the patient. Patient is lying in bed and alert. Her spouse Román is bedside. Patient tells me about her medical history, her current medical problems and the plan of care moving forward. Patient voices her fears about her slow decline in health and her hopes that she may have some really good yrs left. Román talks about his health issues, his career in [employer] and their family. Patient is pleasant and welcomes a prayer being said for her. They both express gratitude for the prayer and showed signs of a weight being lifted emotionally.
--- NOTE | 2023-08-11 18:06 | NUR ---
SUMMARY - PT A/O X4, SBA WITH WALKER RELATED TO IVF AND TELE. USES CALL LIGHT. HAS HAD HEMATURIA, VOIDING GOMEZ WITH SMALL CLOTS. LAST VOID AROUND 1300 AND PT COMPLAINING SHE FEELS THE URGE BUT UNABLE TO VOID. 1800 CHECKED TOILET, GOMEZ COLORED CLOT HALF DOLLER SIZE WITH SCANT URINE. BLADDER SCAN FOR 330ML. WILL NOTIFY . PT CONT WITH NAHCO3 AT 75ML/HR. DR MARTIN IS FOLLOWING. TELE SR 70'5. TOLERATING FOD ANF FLUID. LOW BLOD SUGAR THIS EVENING, GAVE PT PUDDING AND DINNER, WILL RECHECK. WILL REPORT TO NOC RN
[2023-08-11] MEDS ORDERED: Metoprolol Tartrate 25 MG Tab PO SCH (21:00)
[2023-08-12] VITALS (11 sets, daily range): BP systolic 109–148; BP diastolic 36–69
[2023-08-12] MEDS ORDERED: Dextrose 50% 50 ML Vial IV ONE (01:55)
[2023-08-12 05:10] LABS: Hemoglobin 6.5 g/dL (11.5-16.0)
[2023-08-12 06:05] LABS: Albumin, Blood 2.3 g/dL (3.4-5.0); Anion Gap 11 mmol/L (3-11); Blood Urea Nitrogen 63 mg/dL (8-24); Bun/Creatinine Ratio 23.3 (12.0-20.0); CO2, Blood 25 mmol/L (21-32); Calcium, Blood 8.1 mg/dL (8.5-10.1); Chloride, Blood 111 mmol/L (98-108); Glomerular Filtration Rate 18 (60-); Glucose, Blood 106 mg/dL (70-99); Magnesium, Blood 1.1 mg/dL (1.6-2.4); Phosphorus, Blood 3.5 mg/dL (2.5-4.9); Sodium, Blood 142 mmol/L (136-145)
[2023-08-12] MEDS ORDERED: Magnesium Sulf 2 GM/Water 50ML 50 ML IV ONE (06:20)
[2023-08-12] MEDS ORDERED: NS 1,000 ML IV SCH (06:30)
--- NOTE | 2023-08-12 07:41 | NUR ---
CONTINUING EDUCATION DIRECTOR SUMMARY PT A&O X 4, IRRITABLE AT TIMES. PT AMBULATING WITH WALKER AND STAND BY ASSIST TO BEDSIDE COMMODE. PT UP MULTIPLE TIMES THROUGH THE NIGHT TO USE BEDSIDE COMMODE. PT INCONTINANT IN HER BRIEF MAJORITY OF THE TIME BEFORE GETTING TO THE BEDSIDE COMMODE. PT VOIDS SHOWING RED URINE WITH CLOTS RANGING FROM A PENCIL ERASER TO A QUARTER SIZE. PT REPORTING THIS HAS BEEN GOING ON SINCE THE BEGINNING OF JULY AND DAY NURSE PREVIOUSLY REPORTED TO DR. GUY/B[place]. PT REPORTING THAT SHE FREQUENTLY FEELS THE NEED TO VOID BUT HAS ALREADY WENT IN HER BRIEF. SHE THEN SITS ON THE COMMODE GETTING FRUSTRATED THAT SHE ISNT PEEING IN THE COMMODE. SHE IS ALSO FRUSTRATED BY [facility] MULTIPLE LINES THAT NEED FREQUENT ADJUSTING DUE TO HER HAVING TO MOVE TO [facility] COMMODE. PT STOOL LIGHT BROWN, NON-FORMED AND SOFT. NO BLOOD NOTED IN STOOL. PT REPORTING THAT SHE CAN NOT CLEAN HERSELF AFTER VOIDING REQUIRING STAFF ASSISTANCE BUT IT WAS REPORTED BY DAY STAFF THAT SHE IS INDEPENDENT. BUTTOCKS RED AND BARRIER CREAM APPLIED. PT SHOWING NO S/S OF DISCOMFORT OR PAIN. PT SLEEPING BETWEEN VOIDS. PT ABDOMEN NON DISTENDED, NON TENDER, BOWEL TONES HYPOACTIVE. PT HAD A FALL AROUND 0200. PT REPORTS SHE STOOD FROM [facility] BEDSIDE COMMODE TO PULL UP HER BRIEF AND SHE FELL BACK DOWN ON [facility] BEDSIDE COMMODE AND IT SLID OUT FROM UNDER HER AND SHE SLID ONTO THE FLOOR. FALL OCCURED WHILE CBG WAS LOW WHILE WAITING FOR D/50. PT REPORTS SHE HAD FELT LIGHTHEADED WHEN SHE STOOD UP. PT DID NOT HAVE ANY INJURIES, DR. KHAN NOTIFIED, VITALS STABLE. PAST FALL ASSESSMENT AND IRIS COMPLETED. PT ALSO HAD A CRITICAL MAGNESIUM LEVEL OF 1.[address] KHAN NOTIFIED AND HE ORDERED MAGNESIUM. CBG PT BLOOD SUGAR LEVEL WAS 43 AT 1999. SHE REPORTED THAT SHE DID NOT EAT DINNER DUE TO A POOR APPETITE. CBG BEFORE DINNER WAS 69. PT GIVEN APPLE JUICE AND ORANGE JUICE, SHE DECLINED FOOD. CBG INCREASED TO 53. SHE THEN ASKED FOR AN ICE CREAM WHICH I BROUGHT FOR HER AND HER CBG INCREASED TO 72. PT REPORTS SHE CAN FEEL WHEN HER BLOOD SUGAR IS LOW BUT SHE DID NOT REPORT ANY SX PRIOR TO THE 1999 BLOOD SUGAR CHECK. PT DID REPORT NOT FEELING WELL AT 0130, CBG WAS 41. PT GIVEN ORANGE JUICE AND ANOTHER SNACK. PT INSULIN PUMP WAS REMOVED. DR KHAN NOTIFIED OF CBG AND REMOVING HER PUMP, HE ORDERED AN ADDITIONAL D/50 NOW AND WAS OK WITH PUMP REMOVAL. CBG INCREASED TO 132. 4/ MIKE ESTRADA RN
[2023-08-12] MEDS ORDERED: Irbesartan 150 MG Tab PO SCH (09:00)
--- NOTE | 2023-08-12 13:29 | NUR ---
PER DR. BROOKS CALVIN FOR PATIENT'S IRBESARTAN TO BE HELD THIS AM DUE TO BP. HE ALSO ADVISED FOR THE PATIENT TO GET AN ADDITIONAL 1 UNIT OF PRBC, A CT SCAN OF HER ABD/PELVIS (IMAGING DID NOT DO CONTRAST DUE TO KIDNEY FUNCTION), AND INFORMATION OFF OF INSULIN PUMP PROVIDED TO DR. GUY TO DETERMINE SETTINGS FOR INSULIN ADMINISTRATION FOR PATIENT. AWAITING ORDERS FOR PUMP/INSULIN ADMINISTRATION.
--- NOTE | 2023-08-12 16:22 | NUR ---
PER DR. GUY ADVISED TO PLACE PUMP BACK ON THE PATIENT. HE ALSO ADVISED TO CHANGE HER BASAL RATE SETTINGS TO 0.5/U/HR FOR THE ENTIRE 24 HRS. THESE SETTINGS WERE ADJUSTED AND PUMP CONNECTED BACK TO PATIENT.
--- NOTE | 2023-08-12 16:26 | NUR ---
Patient is lying in bed and alert. Patient explains about her many concerns and worries. I provide healthy distraction, levity and prayer. Patient and Román responded well and showed signs of an elevated mood.
--- NOTE | 2023-08-12 17:25 | NUR ---
SHIFT SUMMARY: PT IS AN ALERT AND ORIENTEDX4/SBA-1 PERSON ASSIST HERE FOR ELECTROLYTE IMBALANCES WELL HEMATURIA. SHE HAS BEEN GETTING NORMAL SALINE AT 50 ML/HR AND RECEIVED ANOTHER UNIT OF PRBC TODAYS; TOLERATED INFUSION WELL. SHE CONTINUES TO BE HEMATURIC AND PASSING CLOTS WITH FREQUENCY. SHE REPORTS FEELING WEAK AND FOGGY. SHE HAS LITTLE TO NO APPETITE AND RESTARTED HER INSULIN PUMP THIS AFTERNOON AFTER IT HAS BEEN D/C'D AROUND 0100. SEE NOTES ON PATIENT REGARDING INSULIN PUMP AND SETTINGS. MORE RECENT BLOOD SUGAR IS 176. DR. GUY NOTIFED. ADVISED TO HAVE PATIENT CONTINUING GETTING BASAL RATED INSULIN VIA PUMP WITH NEW SETTINGS AND MONITOR BLOOD SUGARS. PATIENT UNDERWENT A CT OF ABD/PELVIS TODAY WELL AND RESULTS PROVIDED TO DR. GUY. PATIENT DENIES PAIN, AND HAS BEEN MAKING HER NEEDS KNOWN, PLEASANT/COOPERATIVE. HER CALL LIGHT IS WITHIN REACH, SHE IS WATCHING TV, NO SIGNS OR SYMPTOMS OF DISTRESS, BED ALARM ON. PLAN OF CARE ONGOING.
[2023-08-12 17:59] LABS: Hematocrit 26.3 % (33.0-51.0); Hemoglobin 8.4 g/dL (11.5-16.0)
--- NOTE | 2023-08-12 23:10 | NUR ---
NURSE NOTE PATIENT IS CURRENTLY SLEEPING. TELEMONITOR ALERTED THIS RN THAT PATIENT DIPPED DOWN TO SINUS HAI- RATE 39 HEARTRATE. CALLED RADHA AND UPDATED PROVIDER. NO ADDITIONAL ORDERS AT THIS TIME.
--- NOTE | 2023-08-13 04:39 | NUR ---
SHIFT SUMMARY PATIENT IS ALERT AND ORIENTED. PATIENT HAS HAD NO ACUTE EVENTS THIS SHIFT. PATIENT HAS STILL HAS BLOOD IN THEIR URINE. PATIENTS HEART RATE HAS BEEN BRADYCARDIC THAT HAS DIPPED INTO THE 30S. PATIENT HAS NOT HAD ANY COMPLAINTS OF PAIN, NAUSEA, SOB OR VOMITTING THIS SHIFT. VITAL SIGNS REVIEWED. BED IN LOCKED AND LOWEST POSITION. CALL LIGHT IN PLACE. WILL MONITOR UNTIL SHIFT CHANGE.
[2023-08-13 05:06] VITALS: BP 118/52
--- NOTE | 2023-08-13 06:01 | NUR ---
NURSE NOTE PATIENT ALERTED THIS RN THAT HER BLOOD SUGAR FELT LOW. PATIENTS CBG WAS LOW AT 51. PATIENT WAS GIVEN SNACKS TO RAISE CBG. WILL RECHECK.
[2023-08-13 06:06] LABS: Hematocrit 23.2 % (33.0-51.0); Hemoglobin 7.4 g/dL (11.5-16.0)
[2023-08-13 06:26] LABS: Albumin, Blood 2.3 g/dL (3.4-5.0); Anion Gap 8 mmol/L (3-11); Blood Urea Nitrogen 48 mg/dL (8-24); Bun/Creatinine Ratio 20.4 (12.0-20.0); CO2, Blood 26 mmol/L (21-32); Calcium, Blood 8.7 mg/dL (8.5-10.1); Chloride, Blood 115 mmol/L (98-108); Creatinine, Blood 2.35 mg/dL (0.40-1.00); Glomerular Filtration Rate 21 (60-); Glucose, Blood 55 mg/dL (70-99); Magnesium, Blood 1.6 mg/dL (1.6-2.4); Phosphorus, Blood 3.1 mg/dL (2.5-4.9); Potassium, Blood 4.5 mmol/L (3.5-5.5); Sodium, Blood 144 mmol/L (136-145)
[2023-08-13 07:15] VITALS: BP 129/51
[2023-08-13 08:56] VITALS: BP 129/51
[2023-08-13] MEDS ORDERED: Sodium Zirconium Cyclosilicate 10 GM Packet PO SCH (09:00)
[2023-08-13] MEDS ORDERED: Acetaminophen 325 MG TABLET PO PRN (12:00)
--- NOTE | 2023-08-13 12:26 | NUR ---
DR. MARTIN CALLED REGARDING PATIENT'S CT SCAN. HE RECOMMENDED THAT THE PATIENT HAVE A LEAL CATHETER IS THE PATIENT IS AGREEABLE. THE PATIENT IS NOT. HE ALSO STATES THAT THE PATIENT HAS AN APPT WITH HIM AT HIS OFFICE ON 08/16/23 AT 1000 AND HE RECOMMENDS THAT THE PATIENT SEE UROLOGY OUTPATIENT. THIS INFORMATION WAS RELAYED TO DR. GUY. DR. GUY STATES THAT HE WILL DISCUSS WITH DR. MARTIN AND TO HAVE PATIENT'S IMAGES SENT TO UROLOGY AT [facility]. I ALSO DISCUSSED PATIENT'S BLOOD SUGARS WITH HAVING A LOW DURING PROGRAM FACILITATOR AND THAT SHE HAS BEEN IN THE 80'S THIS MORNING. PER DR. GUY ADJUST BASAL RATE SETTING ON INSULIN PUMP FROM 0.5UNITS/HR TO 0.4UNITS/HR. THESE SETTINGS WERE ADJUSTED WHILE DR. GUY WAS AT BEDSIDE.
[2023-08-13] MEDS ORDERED: Tamsulosin HCl 0.4 MG Cap PO SCH (14:00)
[2023-08-13] MEDS ORDERED: LOKELMA10 GM PO (14:52)
[2023-08-13] MEDS ORDERED: TAMS.4ER PO (14:53)
[2023-08-13] MEDS ORDERED: Miconazole Nitrate 2% 85 GM PWD TOP SCH (16:00)
--- NOTE | 2023-08-13 16:53 | NUR ---
DISCHARGE NOTE: IV AND TELE REMOVED AND LEAL PLACED. DISCHARGE DISCUSSED WITH PATIENT. HELPED HER GET DRESSED AND COLLECTED HER BELONGINGS. SHE WAS WHEELED DOWN BY THE RESTAURANT TEAM MEMBER AND MET HER AT THE [facility]. NO SIGNS OR SYMPTOMS OF DISTRESS DURING DISCHARGE.
== END 2023-08-13 16:33 | disposition home health service (06) | DRG 641 ==
LOC: ER 13:55 → MEDS 16:37
PROVIDERS: Internal Medicine Nephrology; ADMIT Family Medicine
PROC: 30233N1 Transfusion of Nonautologous Red Blood Cells into Peripheral Vein, Percutaneous Approach (ICD-10-PCS; principal; 2023-08-11)
DX: E87.5 Hyperkalemia (principal); N17.9 Acute kidney failure, unspecified; D62 Acute posthemorrhagic anemia; N13.2 Hydronephrosis with renal and ureteral calculous obstruction; N25.81 Secondary hyperparathyroidism of renal origin; E87.1 Hypo-osmolality and hyponatremia; E87.20 Acidosis, unspecified; I12.9 Hypertensive chronic kidney disease with stage 1 through stage 4 chronic kidney disease, or unspecified chronic kidney disease; E11.22 Type 2 diabetes mellitus with diabetic chronic kidney disease; N18.2 Chronic kidney disease, stage 2 (mild); E83.42 Hypomagnesemia; E78.5 Hyperlipidemia, unspecified; E86.9 Volume depletion, unspecified; D63.1 Anemia in chronic kidney disease; E11.42 Type 2 diabetes mellitus with diabetic polyneuropathy; E88.09 Other disorders of plasma-protein metabolism, not elsewhere classified; D89.2 Hypergammaglobulinemia, unspecified; M19.90 Unspecified osteoarthritis, unspecified site; G47.33 Obstructive sleep apnea (adult) (pediatric); E03.9 Hypothyroidism, unspecified; E66.9 Obesity, unspecified; K21.9 Gastro-esophageal reflux disease without esophagitis; Z96.41 Presence of insulin pump (external) (internal); R31.9 Hematuria, unspecified; Z88.8 Allergy status to other drugs, medicaments and biological substances; Z79.890 Hormone replacement therapy; Z79.899 Other long term (current) drug therapy; Z68.35 Body mass index [BMI] 35.0-35.9, adult; E78.2 Mixed hyperlipidemia; E11.51 Type 2 diabetes mellitus with diabetic peripheral angiopathy without gangrene; Z79.4 Long term (current) use of insulin; E11.49 Type 2 diabetes mellitus with other diabetic neurological complication; E66.01 Morbid (severe) obesity due to excess calories
CPT/HCPCS: 36415; 36430; 74176; 76770; 80053; 80061; 80069; 82306; 82947; 83036; 83735; 84132; 84443; 85014; 85018; 85025; 86850; 86900; 86901; 86923; 93005; 93010; 94644; 94664; 94762; 96374; 96375; 97162; 99284-25; A9270; J0612; J0881; J1815; J3475; J7030; J7040; J7799; P9016

== ENCOUNTER 2023-08-14 23:49 | Emergency (ER) | payer OTHER ==
[~2023-08-14] VITALS: Ht 165.1 cm; Wt 106.6 kg
[~2023-08-14 23:49] MED LIST changes: +Aspir 8181 MG PO; +IRBESARTAN150 M3 PO; +IRON18 MG PO; +LOKELMA10 GM PO; +OMEP20ER PO; +OXYB5 PO; +SYNTHROID88 MCG PO; +TAMS.4ER PO
[2023-08-15 02:51] VITALS: BP 124/88
== END 2023-08-15 02:55 | disposition home or self-care (01) ==
LOC: ER 23:49
DX: T83.098A Other mechanical complication of other urinary catheter, initial encounter (principal); E11.9 Type 2 diabetes mellitus without complications; E78.5 Hyperlipidemia, unspecified; Y73.8 Miscellaneous gastroenterology and urology devices associated with adverse incidents, not elsewhere classified; Z88.8 Allergy status to other drugs, medicaments and biological substances; Z79.4 Long term (current) use of insulin; Z79.890 Hormone replacement therapy; Z79.899 Other long term (current) drug therapy
CPT/HCPCS: 99283

== ENCOUNTER 2023-08-18 19:46 | Emergency (ER) | payer OTHER ==
[~2023-08-18] VITALS: Ht 167.6 cm; Wt 95.2 kg
[2023-08-18 20:46] LABS: BASOPHILS ABSOLUTE AUTO 0.04 K/mm3 (0.00-0.23); BASOPHILS PERCENT AUTO 0 % (0-2); EOSINOPHILS ABSOLUTE AUTO 0.14 K/mm3 (0.00-0.68); EOSINOPHILS PERCENT AUTO 1 % (0-6); Hematocrit 25.6 % (33.0-51.0); IMMATURE GRAN PERCENT AUTO 3 % (0-1); LYMPHOCYTES ABSOLUTE AUTO 1.63 K/mm3 (0.84-5.20); LYMPHOCYTES PERCENT AUTO 16 % (21-46); MONOCYTES ABSOLUTE AUTO 0.98 K/mm3 (0.16-1.47); MONOCYTES PERCENT AUTO 10 % (4-13); Mean Corpuscular HGB 28.8 pg (26.0-34.0); Mean Corpuscular HGB Conc 31.3 g/dL (31.5-36.5); Mean Corpuscular Volume 92 fL (80-100); Mean Platelet Volume 8.7 fL (9.1-12.4); NEUTROPHILS PERCENT AUTO 70 % (41-73); Platelet Count 277 K/mm3 (150-400); RDW Coefficient Variation 15.8 % (11.7-14.2); RDW Standard Deviation 52.1 fL (35.1-46.3); Red Blood Cell Count 2.78 M/mm3 (3.80-5.20); White Blood Cell Count 10.19 K/mm3 (4.00-11.30)
[2023-08-18 21:06] LABS: Albumin, Blood 2.6 g/dL (3.4-5.0); Albumin/Globulin Ratio 0.6 (0.8-1.8); Bilirubin, Total 0.4 mg/dL (0.1-1.0); Bun/Creatinine Ratio 16.6 (12.0-20.0); Calcium, Blood 8.6 mg/dL (8.5-10.1); Creatinine, Blood 2.23 mg/dL (0.40-1.00); Globulin, Blood 4.2 g/dL (2.2-4.0); Potassium, Blood 4.4 mmol/L (3.5-5.5); Total Protein, Blood 6.8 g/dL (6.4-8.2)
[2023-08-19 02:03] VITALS: BP 104/42
[2023-08-19 02:17] LABS: Source, Urine Foley catheter
[2023-08-19] MEDS ORDERED: CEPH500 PO (02:18)
[2023-08-19 02:41] LABS: Appearance, Urine Bloody (Clear); Bilirubin, Urine Neg (Neg); Blood, Urine 5+ (Neg); Color, Urine Red (P-Yellow); Glucose Qualitative, Urine Neg (Neg); Ketones, Urine Neg (Neg); Leukocyte Esterase, Urine 3+ (Neg); Nitrite, Urine Neg (Neg); Protein, Urine 4+ (Neg); Urobilinogen, Urine NORM (Normal)
[2023-08-19 03:04] LABS: Amorphous Light (0-Heavy); Bacteria Mod /hpf; Mucus Light (0-Heavy); Red Blood Cells, Urine TNTC /hpf (0-2); Squamous Epithelial Cells Few /hpf (Few); White Blood Cells, Urine 50-100 /hpf (0-5)
== END 2023-08-19 02:24 | disposition home or self-care (01) ==
LOC: ER 19:46
PROVIDERS: Emergency Medicine; Physician Assistant
DX: T83.511A Infection and inflammatory reaction due to indwelling urethral catheter, initial encounter (principal); Z88.8 Allergy status to other drugs, medicaments and biological substances; Z79.899 Other long term (current) drug therapy; Z79.4 Long term (current) use of insulin; E11.42 Type 2 diabetes mellitus with diabetic polyneuropathy
CPT/HCPCS: 51702; 80053; 81001; 85025; 87077; 87086; 87186; 99283-25

== ENCOUNTER → 2023-10-07 | Outpatient (CLI) | payer OTHER ==
[~2023-10-07] MED LIST changes: +ASPI81CH PO; +CEFDINIR300 M4 PO; +CEPH500 PO; +FOLI1 PO
[2023-10-07 13:04] LABS: Albumin, Blood 2.8 g/dL (3.4-5.0); Anion Gap 16 mmol/L (3-11); Blood Urea Nitrogen 54 mg/dL (8-24); Bun/Creatinine Ratio 20.6 (12.0-20.0); CO2, Blood 22 mmol/L (21-32); Chloride, Blood 108 mmol/L (98-108); Creatinine, Blood 2.62 mg/dL (0.40-1.00); Glomerular Filtration Rate 18 (60-); Glucose, Blood 190 mg/dL (70-99); Phosphorus, Blood 4.1 mg/dL (2.5-4.9); Potassium, Blood 5.4 mmol/L (3.5-5.5); Sodium, Blood 141 mmol/L (136-145)
== END ==
LOC: LAB SHORT → LAB 12:35 → LAB SHORT 12:47
PROVIDERS: Physician Assistant
DX: N18.4 Chronic kidney disease, stage 4 (severe) (principal)
CPT/HCPCS: 80069

== ENCOUNTER 2023-10-11 10:35 | Observation (INO) | payer OTHER ==
[~2023-10-11] VITALS: Ht 167.6 cm; Wt 91.6 kg
[~2023-10-11 10:35] MED LIST changes: -ASPI81CH PO; -CEFDINIR300 M4 PO; -FOLI1 PO
[2023-10-11] MEDS ORDERED: Ondansetron 4 MG TAB PO PRN (14:00)
[2023-10-11] MEDS ORDERED: Acetaminophen 325 MG TABLET PO PRN (14:00)
[2023-10-11 14:11] LABS: BASOPHILS ABSOLUTE AUTO 0.06 K/mm3 (0.00-0.23); BASOPHILS PERCENT AUTO 1 % (0-2); EOSINOPHILS ABSOLUTE AUTO 0.15 K/mm3 (0.00-0.68); EOSINOPHILS PERCENT AUTO 2 % (0-6); Hematocrit 35.5 % (33.0-51.0); Hemoglobin 10.6 g/dL (11.5-16.0); IMMATURE GRAN ABSOLUTE AUTO 0.11 K/mm3 (0.00-0.10); IMMATURE GRAN PERCENT AUTO 1 % (0-1); LYMPHOCYTES ABSOLUTE AUTO 3.16 K/mm3 (0.84-5.20); LYMPHOCYTES PERCENT AUTO 34 % (21-46); MONOCYTES ABSOLUTE AUTO 0.85 K/mm3 (0.16-1.47); MONOCYTES PERCENT AUTO 9 % (4-13); Mean Corpuscular HGB 26.8 pg (26.0-34.0); Mean Corpuscular HGB Conc 29.9 g/dL (31.5-36.5); Mean Corpuscular Volume 90 fL (80-100); Mean Platelet Volume 8.6 fL (9.1-12.4); NEUTROPHILS ABSOLUTE AUTO 5.04 K/mm3 (1.96-9.15); NEUTROPHILS PERCENT AUTO 54 % (41-73); Platelet Count 341 K/mm3 (150-400); RDW Coefficient Variation 16.6 % (11.7-14.2); RDW Standard Deviation 54.9 fL (35.1-46.3); Red Blood Cell Count 3.96 M/mm3 (3.80-5.20); White Blood Cell Count 9.37 K/mm3 (4.00-11.30)
[2023-10-11 14:15] LABS: Albumin, Blood 2.9 g/dL (3.4-5.0); Albumin/Globulin Ratio 0.6 (0.8-1.8); Bilirubin, Total 0.3 mg/dL (0.1-1.0); Bun/Creatinine Ratio 20.3 (12.0-20.0); Creatinine, Blood 2.66 mg/dL (0.40-1.00); Total Protein, Blood 7.9 g/dL (6.4-8.2)
[2023-10-11] MEDS ORDERED: CEFDINIR300 M4 PO (17:57)
[2023-10-11] MEDS ORDERED: ASPI81CH PO (17:58)
[2023-10-11 18:41] VITALS: BP 140/63
[2023-10-11] MEDS ORDERED: FOLI1 PO (19:40)
[2023-10-11 20:06] VITALS: BP 144/59
[2023-10-11] MEDS ORDERED: Insulin Pump Cartridge MISC SC SCH (20:10)
[2023-10-11] MEDS ORDERED: oxyBUTYnin chloride 5 MG TAB PO SCH (21:00)
[2023-10-11] MEDS ORDERED: Metoprolol Tartrate 50 MG Tab PO SCH (21:00)
[2023-10-12 05:02] LABS: BASOPHILS ABSOLUTE AUTO 0.05 K/mm3 (0.00-0.23); BASOPHILS PERCENT AUTO 1 % (0-2); EOSINOPHILS ABSOLUTE AUTO 0.23 K/mm3 (0.00-0.68); EOSINOPHILS PERCENT AUTO 3 % (0-6); Hematocrit 31.1 % (33.0-51.0); Hemoglobin 9.4 g/dL (11.5-16.0); IMMATURE GRAN ABSOLUTE AUTO 0.08 K/mm3 (0.00-0.10); IMMATURE GRAN PERCENT AUTO 1 % (0-1); LYMPHOCYTES ABSOLUTE AUTO 2.33 K/mm3 (0.84-5.20); LYMPHOCYTES PERCENT AUTO 32 % (21-46); MONOCYTES ABSOLUTE AUTO 0.79 K/mm3 (0.16-1.47); MONOCYTES PERCENT AUTO 11 % (4-13); Mean Corpuscular HGB 26.6 pg (26.0-34.0); Mean Corpuscular HGB Conc 30.2 g/dL (31.5-36.5); Mean Corpuscular Volume 88 fL (80-100); Mean Platelet Volume 8.9 fL (9.1-12.4); NEUTROPHILS ABSOLUTE AUTO 3.79 K/mm3 (1.96-9.15); NEUTROPHILS PERCENT AUTO 52 % (41-73); Platelet Count 311 K/mm3 (150-400); RDW Coefficient Variation 16.4 % (11.7-14.2); RDW Standard Deviation 52.6 fL (35.1-46.3); Red Blood Cell Count 3.54 M/mm3 (3.80-5.20); White Blood Cell Count 7.27 K/mm3 (4.00-11.30)
[2023-10-12 05:21] LABS: Albumin, Blood 2.6 g/dL (3.4-5.0); Albumin/Globulin Ratio 0.6 (0.8-1.8); Bilirubin, Total 0.4 mg/dL (0.1-1.0); Bun/Creatinine Ratio 21.9 (12.0-20.0); Calcium, Blood 8.8 mg/dL (8.5-10.1); Creatinine, Blood 2.37 mg/dL (0.40-1.00); Globulin, Blood 4.1 g/dL (2.2-4.0); Magnesium, Blood 1.6 mg/dL (1.6-2.4); Potassium, Blood 4.8 mmol/L (3.5-5.5); Total Protein, Blood 6.7 g/dL (6.4-8.2)
[2023-10-12] MEDS ORDERED: Levothyroxine Sodium 0.088 MG Tab PO SCH (06:00)
[2023-10-12] MEDS ORDERED: Omeprazole 20 MG CapCR PO SCH (06:00)
--- NOTE | 2023-10-12 06:06 | NUR ---
SUMMARY: PT A/OX4, CALLS APPROPRIATELY TO SPECIFY NEEDS AND IS PLEASANT AND COOPERATIVE W/CARE. SHE'S UP W/SBA AND FWW TO VOID AND URINE NOTED TO BE CLOUDY YELLOW W/MUCOUS. CX FAXED FOR POSS NEPHROSTOMY PLACEMENT. PT HAS IMPLANTED INSULIN PUMP DELIVERING A BASAL RATE AND COVERAGE PRN BID. SHE'S DENIED PAIN AND ALL OTHER COMPLAINTS. VSS/AFEBRILE, NO ACUTE CHANGES.
[2023-10-12 08:11] VITALS: BP 135/64
[2023-10-12] MEDS ORDERED: Folic Acid 1 MG TAB PO SCH (09:00)
[2023-10-12] MEDS ORDERED: Cholecalciferol 1000 Unit Tablet (=25MCG) PO SCH (09:00)
[2023-10-12] MEDS ORDERED: Enoxaparin 30 MG/0.3 ML SYR SC SCH (09:00)
[2023-10-12] MEDS ORDERED: Aspirin 81 MG Chew PO SCH (09:00)
[2023-10-12] MEDS ORDERED: D5W-1/2NS 1,000 ML IV SCH (10:05)
[2023-10-12 14:53] VITALS: BP 129/62
--- NOTE | 2023-10-12 16:13 | NUR ---
SHIFT SUMMARY: PATIENT IS PAIUTE-SHOSHONE BUT IS A&OX4. VS ARE WNL AND IS ON RA WITH >90% OXYGEN SATS. SHE IS A SBA WITH FWW AND GAIT BELT WITH AMBULATION. SHE IS VOIDING AND IS TOLERATING PO INTAKE BUT IS CURRENTLY NPO WAITING TO HEAR FROM DR. VALLE ON IF HE WILL PREFORM A PROCEDURE ON THE PATIENT LATER TODAY. PATIENT IS ON D5 1/2 NS AT A RATE OF 75 ML/HR DUE TO HER BEING NPO AT THIS TIME. PATIENT IS CURRENTLY LAYING IN BED WITH CALL LIGHT IN REACH. PATIENT CALLS APPROPRIATELY. IS AT BEDSIDE.
[2023-10-12] MEDS ORDERED: Heparin Sodium 1000 Units/ML 10ML MDV ONE (17:40)
[2023-10-12] MEDS ORDERED: NS 250 ML IV ONE ×2 (17:40→17:47)
--- NOTE | 2023-10-12 17:45 | NUR ---
PATIENT WAS WHEELCHAIRED DOWN TO CRYPTOLOGIC TECHNICIAN OPERATOR/ANALYST WITH CRYPTOLOGIC TECHNICIAN OPERATOR/ANALYST NURSE AND NARCOTICS AND/OR VICE DETECTIVE.
[2023-10-12] MEDS ORDERED: FentaNYL Citrate 50 MCG/ML 2 ML Injection ONE (17:48)
[2023-10-12] MEDS ORDERED: NS 500 ML IV ONE (17:48)
[2023-10-12] MEDS ORDERED: Midazolam HCl 1MG / ML 2ML Vial ONE (17:49)
[2023-10-12 19:45] VITALS: BP 124/53
[2023-10-13 03:31] VITALS: BP 109/47
--- NOTE | 2023-10-13 07:21 | NUR ---
SHIFT SUMMARY: PATIENT ORIENTED, COOPERATIVE, ANXIOUS. PATIENT WALKED TO BATHROOM WITH WALKER, PREFERRED SLEEPING ON CHAIR. PATIENT SLEPT FAIRLY DURING NIGHT.
[2023-10-13 07:42] VITALS: BP 129/52
[2023-10-13 09:10] LABS: BASOPHILS ABSOLUTE AUTO 0.04 K/mm3 (0.00-0.23); BASOPHILS PERCENT AUTO 0 % (0-2); EOSINOPHILS PERCENT AUTO 1 % (0-6); Hematocrit 33.4 % (33.0-51.0); Hemoglobin 10.1 g/dL (11.5-16.0); IMMATURE GRAN ABSOLUTE AUTO 0.09 K/mm3 (0.00-0.10); IMMATURE GRAN PERCENT AUTO 1 % (0-1); LYMPHOCYTES ABSOLUTE AUTO 1.76 K/mm3 (0.84-5.20); LYMPHOCYTES PERCENT AUTO 17 % (21-46); MONOCYTES ABSOLUTE AUTO 0.91 K/mm3 (0.16-1.47); MONOCYTES PERCENT AUTO 9 % (4-13); Mean Corpuscular HGB 26.6 pg (26.0-34.0); Mean Corpuscular HGB Conc 30.2 g/dL (31.5-36.5); Mean Corpuscular Volume 88 fL (80-100); Mean Platelet Volume 8.5 fL (9.1-12.4); NEUTROPHILS ABSOLUTE AUTO 7.27 K/mm3 (1.96-9.15); NEUTROPHILS PERCENT AUTO 72 % (41-73); Platelet Count 337 K/mm3 (150-400); RDW Coefficient Variation 16.8 % (11.7-14.2); RDW Standard Deviation 53.5 fL (35.1-46.3); White Blood Cell Count 10.17 K/mm3 (4.00-11.30)
[2023-10-13 09:27] LABS: Albumin, Blood 2.7 g/dL (3.4-5.0); Albumin/Globulin Ratio 0.6 (0.8-1.8); Bilirubin, Total 0.5 mg/dL (0.1-1.0); Bun/Creatinine Ratio 18.7 (12.0-20.0); Calcium, Blood 8.6 mg/dL (8.5-10.1); Creatinine, Blood 2.35 mg/dL (0.40-1.00); Globulin, Blood 4.5 g/dL (2.2-4.0); Total Protein, Blood 7.2 g/dL (6.4-8.2)
[2023-10-13] MEDS ORDERED: CefTRIAXone Sodium 1,000 MG in NS 100 ML IV SCH (12:00)
[2023-10-13 15:09] VITALS: BP 117/54
--- NOTE | 2023-10-13 17:12 | NUR ---
NO ACUTE CHANGES THIS SHIFT. RIGHT NEPHROSTOMY IS PUTTING OUT MORE THAN LEFT THIS SHIFT. PT IS ALERT AND ORIENTED X4 AND ABLE TO MAKE NEEDS KNOWN. PT REPORTS 2/10 PAIN ON THE LEFT SIDE NEPHROSTOMY SITE. DENIES PAIN IN CHEST AND SOB. PLAN TO DISCHARGE TOMORROW.
[2023-10-13 19:41] VITALS: BP 109/45
--- NOTE | 2023-10-14 04:16 | NUR ---
SHIFT SUMMARY PATIENT HAD NO ACUTE CHANGES. AXOX 4 AND SBA W/FWW TO BSC. DENIES CHEST PAIN, SOB, AND N/V. VSS/AFEBRILE. PIV INTACT. CBG 176. NEPROSTOMY LEFT & RIGHT TUBES DRAINING AND INTACT. WILL CALL APPROPRIATELY. SLEPT MOST OF THE SHIFT. CALL LIGHT IN REACH. BED IN LOWEST POSITION. WILL CONTINUE TO MONITOR UNTIL DAY SHIFT NURSE ASSUMES CARE.
[2023-10-14 05:18] LABS: BASOPHILS ABSOLUTE AUTO 0.02 K/mm3 (0.00-0.23); BASOPHILS PERCENT AUTO 0 % (0-2); EOSINOPHILS ABSOLUTE AUTO 0.21 K/mm3 (0.00-0.68); EOSINOPHILS PERCENT AUTO 3 % (0-6); Hematocrit 31.1 % (33.0-51.0); Hemoglobin 9.2 g/dL (11.5-16.0); IMMATURE GRAN ABSOLUTE AUTO 0.09 K/mm3 (0.00-0.10); IMMATURE GRAN PERCENT AUTO 1 % (0-1); LYMPHOCYTES ABSOLUTE AUTO 2.07 K/mm3 (0.84-5.20); LYMPHOCYTES PERCENT AUTO 25 % (21-46); MONOCYTES ABSOLUTE AUTO 0.96 K/mm3 (0.16-1.47); MONOCYTES PERCENT AUTO 12 % (4-13); Mean Corpuscular HGB 26.1 pg (26.0-34.0); Mean Corpuscular HGB Conc 29.6 g/dL (31.5-36.5); Mean Corpuscular Volume 88 fL (80-100); Mean Platelet Volume 8.4 fL (9.1-12.4); NEUTROPHILS ABSOLUTE AUTO 5.01 K/mm3 (1.96-9.15); NEUTROPHILS PERCENT AUTO 60 % (41-73); Platelet Count 300 K/mm3 (150-400); RDW Coefficient Variation 16.8 % (11.7-14.2); RDW Standard Deviation 53.6 fL (35.1-46.3); Red Blood Cell Count 3.53 M/mm3 (3.80-5.20); White Blood Cell Count 8.36 K/mm3 (4.00-11.30)
[2023-10-14 05:35] VITALS: BP 125/62
[2023-10-14 05:49] LABS: Albumin, Blood 2.5 g/dL (3.4-5.0); Albumin/Globulin Ratio 0.6 (0.8-1.8); Bilirubin, Total 0.3 mg/dL (0.1-1.0); Bun/Creatinine Ratio 18.6 (12.0-20.0); Calcium, Blood 8.4 mg/dL (8.5-10.1); Creatinine, Blood 2.36 mg/dL (0.40-1.00); Globulin, Blood 4.3 g/dL (2.2-4.0); Potassium, Blood 4.8 mmol/L (3.5-5.5); Total Protein, Blood 6.8 g/dL (6.4-8.2)
[2023-10-14 07:35] VITALS: BP 123/48
--- NOTE | 2023-10-14 15:11 | NUR ---
PT DISCHARGED HOME. SPOUSE AT BEDSIDE. SPOKE WITH [facility], PER [facility] THEY WILL FOLLOW UP WITH THE PT TO SCHEDULE FOLLOW UP. DISCHARGE INSTRUCTIONS DISCUSSED WITH PT. NO QUESTIONS AT THIS TIME
== END 2023-10-14 14:31 | disposition home or self-care (01) ==
LOC: ER 10:35 → MEDS 10:36
PROVIDERS: Nurse Practitioner; ADMIT Internal Medicine
DX: N13.2 Hydronephrosis with renal and ureteral calculous obstruction (principal); I12.9 Hypertensive chronic kidney disease with stage 1 through stage 4 chronic kidney disease, or unspecified chronic kidney disease; E11.22 Type 2 diabetes mellitus with diabetic chronic kidney disease; N18.4 Chronic kidney disease, stage 4 (severe); D63.1 Anemia in chronic kidney disease; N25.81 Secondary hyperparathyroidism of renal origin; E78.5 Hyperlipidemia, unspecified; E03.9 Hypothyroidism, unspecified; G47.33 Obstructive sleep apnea (adult) (pediatric); E55.9 Vitamin D deficiency, unspecified; Z79.82 Long term (current) use of aspirin; Z79.4 Long term (current) use of insulin; Z79.890 Hormone replacement therapy; Z79.899 Other long term (current) drug therapy
CPT/HCPCS: 36415; 50432; 76937; 80053; 82947; 83735; 85025; 96372; 96374; 96376; 99152; 99153; 99284; A9270; C1729; C1769; G0378; J0696; J1644; J1650; J2250; J3010; J7040; J7042; J7050; Q9967

== ENCOUNTER 2024-01-26 09:14 | Observation (INO) | payer OTHER ==
[~2024-01-26] VITALS: Ht 165.1 cm; Wt 89.5 kg
[~2024-01-26 09:14] MED LIST changes: +ASPIR 8181 M1 PO; +CEFDINIR300 M4 PO; -ERGO400 PO; +FOLI1 PO; +Vitamin D1000 UNI1
[2024-01-26 10:20] LABS: BASOPHILS ABSOLUTE AUTO 0.02 K/mm3 (0.00-0.23); BASOPHILS PERCENT AUTO 0 % (0-2); Base Excess Venous -7.9 mmol/L; Bicarbonate Venous 18.6 mmol/L (24.0-30.0); EOSINOPHILS ABSOLUTE AUTO 0.04 K/mm3 (0.00-0.68); EOSINOPHILS PERCENT AUTO 0 % (0-6); Hematocrit 35.2 % (33.0-51.0); Hemoglobin 10.9 g/dL (11.5-16.0); IMMATURE GRAN ABSOLUTE AUTO 0.06 K/mm3 (0.00-0.10); IMMATURE GRAN PERCENT AUTO 1 % (0-1); LYMPHOCYTES ABSOLUTE AUTO 2.05 K/mm3 (0.84-5.20); LYMPHOCYTES PERCENT AUTO 22 % (21-46); MONOCYTES ABSOLUTE AUTO 0.74 K/mm3 (0.16-1.47); MONOCYTES PERCENT AUTO 8 % (4-13); Mean Corpuscular HGB 26.5 pg (26.0-34.0); Mean Corpuscular Volume 86 fL (80-100); Mean Platelet Volume 9.3 fL (9.1-12.4); NEUTROPHILS ABSOLUTE AUTO 6.62 K/mm3 (1.96-9.15); NEUTROPHILS PERCENT AUTO 70 % (41-73); PCO2 Venous 36.4 mmHg (38-42); Platelet Count 166 K/mm3 (150-400); RDW Coefficient Variation 19.4 % (11.7-14.2); RDW Standard Deviation 60.3 fL (35.1-46.3); Red Blood Cell Count 4.11 M/mm3 (3.80-5.20); White Blood Cell Count 9.53 K/mm3 (4.00-11.30); pH Blood Venous 7.31 (7.34-7.37)
[2024-01-26 10:25] LABS: Albumin/Globulin Ratio 0.9 (0.8-1.8); Bilirubin, Total 0.6 mg/dL (0.1-1.0); Bun/Creatinine Ratio 19.3 (12.0-20.0); Calcium, Blood 8.1 mg/dL (8.5-10.1); Creatinine, Blood 1.61 mg/dL (0.40-1.00); Globulin, Blood 3.5 g/dL (2.2-4.0); Potassium, Blood 3.5 mmol/L (3.5-5.5); Total Protein, Blood 6.5 g/dL (6.4-8.2)
[2024-01-26 11:57] LABS: Influenza A, PCR NEGATIVE (NEGATIVE); Influenza B, PCR NEGATIVE (NEGATIVE); Resp Syncytial Virus, PCR NEGATIVE (NEGATIVE)
[2024-01-26 12:02] LABS: SARS-Cov-2 (COVID-19) PCR, MMC POSITIVE (NEGATIVE)
[2024-01-26] MEDS ORDERED: Acetaminophen 325 MG TABLET PO PRN (12:30)
[2024-01-26] MEDS ORDERED: FLU VACC TS2024-25(6MOS UP)/PF 45 MCG/0.5 ML SYRINGE IM SCH (12:30)
[2024-01-26] MEDS ORDERED: Dextrose 50% 50 ML Vial IV PRN (12:30)
[2024-01-26] MEDS ORDERED: Insulin Regular 100 Unit/ML 1ML Dose SC ONE (16:00)
[2024-01-26] MEDS ORDERED: Insulin Regular 100 UNIT/ML 10ML Vial SC SCH ×2 (16:30→21:55)
[2024-01-26 17:10] VITALS: BP 162/65
[2024-01-26 17:11] VITALS: BP 156/66
[2024-01-26] MEDS ORDERED: LOKELMA10 GM PO (17:23)
--- NOTE | 2024-01-26 18:42 | NUR ---
ER ADMIT. PT IS ALERT AND ORIENTED X4, INDEPENDENT WITH FWW, VERBALIZED WILL CALL NOT FALL. INSULIN PUMP NOT IN USE AND AT BEDSIDE. AC/HS MONITORING. PT USES 2L BLEED IN WITH CPAP OVERNIGHT
[2024-01-26 20:46] VITALS: BP 159/69
[2024-01-27 04:00] VITALS: BP 147/51
[2024-01-27 05:12] LABS: BASOPHILS PERCENT AUTO 0 % (0-2); EOSINOPHILS PERCENT AUTO 0 % (0-6); Hematocrit 34.1 % (33.0-51.0); Hemoglobin 10.4 g/dL (11.5-16.0); IMMATURE GRAN ABSOLUTE AUTO 0.04 K/mm3 (0.00-0.10); IMMATURE GRAN PERCENT AUTO 1 % (0-1); LYMPHOCYTES ABSOLUTE AUTO 0.69 K/mm3 (0.84-5.20); LYMPHOCYTES PERCENT AUTO 12 % (21-46); MONOCYTES ABSOLUTE AUTO 0.41 K/mm3 (0.16-1.47); MONOCYTES PERCENT AUTO 7 % (4-13); Mean Corpuscular HGB 25.9 pg (26.0-34.0); Mean Corpuscular HGB Conc 30.5 g/dL (31.5-36.5); Mean Corpuscular Volume 85 fL (80-100); Mean Platelet Volume 9.5 fL (9.1-12.4); NEUTROPHILS ABSOLUTE AUTO 4.72 K/mm3 (1.96-9.15); NEUTROPHILS PERCENT AUTO 81 % (41-73); Platelet Count 176 K/mm3 (150-400); RDW Coefficient Variation 18.8 % (11.7-14.2); RDW Standard Deviation 58.4 fL (35.1-46.3); Red Blood Cell Count 4.02 M/mm3 (3.80-5.20); White Blood Cell Count 5.86 K/mm3 (4.00-11.30)
[2024-01-27 05:46] LABS: Bun/Creatinine Ratio 22.6 (12.0-20.0); Calcium, Blood 8.5 mg/dL (8.5-10.1); Creatinine, Blood 1.46 mg/dL (0.40-1.00); Potassium, Blood 4.4 mmol/L (3.5-5.5)
[2024-01-27 08:25] VITALS: BP 147/56
[2024-01-27] MEDS ORDERED: oxyBUTYnin chloride 5 MG TAB PO SCH (09:00)
[2024-01-27] MEDS ORDERED: Folic Acid 1 MG TAB PO SCH (09:00)
[2024-01-27] MEDS ORDERED: Cholecalciferol 1000 Unit Tablet (=25MCG) PO SCH (09:00)
[2024-01-27] MEDS ORDERED: Enoxaparin 30 MG/0.3 ML SYR SC SCH (09:00)
[2024-01-27] MEDS ORDERED: Enoxaparin 40 MG/0.4 ML SYR SC SCH (09:00)
[2024-01-27] MEDS ORDERED: Metoprolol Tartrate 50 MG Tab PO SCH (09:00)
[2024-01-27] MEDS ORDERED: Aspirin 81 MG Chew PO SCH (09:00)
[2024-01-27] MEDS ORDERED: Insulin Pump Cartridge MISC SC SCH (09:15)
[2024-01-27] MEDS ORDERED: ROSUVASTATIN CA10 MG PO (10:03)
[2024-01-27] MEDS ORDERED: Rosuvastatin Calcium 10 MG Tab PO SCH (10:05)
--- NOTE | 2024-01-27 14:19 | NUR ---
DISCHARGE NOTE: WENT OVER DISCHARGE WITH PATIENT. SHE GOT HERSELF DRESSED AND COLLECTED HER BELONGINGS. PATIENT'S WENT DOWN TO GET CAR, PATIENT WHEELED DOWN VIA WHEELCHAIR BY SALES REPRESENTATIVE. NO SIGNS OR SYMPTOMS OF DISTRESS DURING DISCHARGE.
[2024-01-28] MEDS ORDERED: Levothyroxine Sodium 0.088 MG Tab PO SCH (06:00)
[2024-01-28] MEDS ORDERED: Omeprazole 20 MG CapCR PO SCH (06:00)
== END 2024-01-27 13:57 | disposition home or self-care (01) ==
LOC: ER 09:14 → ERHOLD 09:15 → EDBEDREQ 12:59 → MEDS 17:05
PROVIDERS: Emergency Medicine; ADMIT Family Medicine
DX: E11.649 Type 2 diabetes mellitus with hypoglycemia without coma (principal); U07.1 COVID-19; I12.9 Hypertensive chronic kidney disease with stage 1 through stage 4 chronic kidney disease, or unspecified chronic kidney disease; E11.22 Type 2 diabetes mellitus with diabetic chronic kidney disease; N18.30 Chronic kidney disease, stage 3 unspecified; N25.81 Secondary hyperparathyroidism of renal origin; D64.9 Anemia, unspecified; E03.9 Hypothyroidism, unspecified; G47.33 Obstructive sleep apnea (adult) (pediatric); E78.5 Hyperlipidemia, unspecified; E66.9 Obesity, unspecified; Z68.25 Body mass index [BMI] 25.0-25.9, adult; Z79.4 Long term (current) use of insulin; Z79.890 Hormone replacement therapy; Z79.82 Long term (current) use of aspirin; Z79.899 Other long term (current) drug therapy; Z88.8 Allergy status to other drugs, medicaments and biological substances; Z87.442 Personal history of urinary calculi
CPT/HCPCS: 0241U; 36415; 71045; 80048; 80053; 82803; 82947; 83036; 85025; 93005; 93010; 94760; 96372; 99285-25; A9270; G0378; J1650; J1815

== ENCOUNTER → 2024-04-18 | Outpatient (CLI) | payer OTHER ==
[~2024-04-18] MED LIST changes: +ROSUVASTATIN CA10 MG PO
[2024-04-18 13:56] LABS: Protein, Urine Quantitative 195.2 mg/dL (0.0-11.9)
== END ==
LOC: LAB SHORT 07:20 → LAB 07:20 → LAB SHORT 08:49 → EDSTATUS 08:51
PROVIDERS: Internal Medicine Nephrology
DX: N18.30 Chronic kidney disease, stage 3 unspecified (principal); D63.1 Anemia in chronic kidney disease; N25.81 Secondary hyperparathyroidism of renal origin; E55.9 Vitamin D deficiency, unspecified; E29.1 Testicular hypofunction; R76.9 Abnormal immunological finding in serum, unspecified; R94.6 Abnormal results of thyroid function studies; R94.5 Abnormal results of liver function studies
CPT/HCPCS: 82043; 84156

== ENCOUNTER 2024-07-21 07:09 | Day surgery (SDC) | payer OTHER ==
[~2024-07-21] VITALS: Ht 167.6 cm; Wt 83.0 kg
[2024-07-21 07:35] VITALS: BP 107/61
[2024-07-21 07:38] VITALS: BP 107/61
[2024-07-21 07:45] VITALS: BP 111/71
[2024-07-21] MEDS ORDERED: EUTHYROX88 MCG PO (07:47)
[2024-07-21] MEDS ORDERED: Midazolam HCl 1MG / ML 2ML Vial ONE (08:33)
[2024-07-21] MEDS ORDERED: FentaNYL Citrate 50 MCG/ML 2 ML Injection ONE (08:33)
[2024-07-21] MEDS ORDERED: NS 1,000 ML IV ONE (08:33)
[2024-07-21] MEDS ORDERED: Heparin Sodium 1000 Units/ML 10ML MDV ONE (08:39)
[2024-07-21] MEDS ORDERED: NS 250 ML IV ONE (08:39)
[2024-07-21] MEDS ORDERED: Heparin Sodium 10,000 Units/ML 1ML MDV ONE (08:51)
[2024-07-21 09:30] VITALS: BP 96/86
[2024-07-21 09:45] VITALS: BP 130/114
--- NOTE | 2024-07-21 10:15 | NUR ---
ASSISTED PATIENT TO RESTROOM AND BACK VIA WC. PT TOLERATES WELL. PT AND S/O VERBALIZES UNDERSTANDING WRITTEN AND VERBAL INSTRUCTIONS. DENIES QUESTIONS. VSS. PT DRESSES SELF WITHOUT DIFF. PT IV DC'D. CATH INTACT. PRESSURE DSG APPLIED. PT R IJ SITE REMAINS C/D/I. NO BLEEDING NOTED. PT DC TO HOME VIA WC BY S/O.
== END 2024-07-21 10:15 | disposition home or self-care (01) ==
LOC: MHTC 07:09
DX: I12.0 Hypertensive chronic kidney disease with stage 5 chronic kidney disease or end stage renal disease (principal); E11.22 Type 2 diabetes mellitus with diabetic chronic kidney disease; N18.6 End stage renal disease; E78.5 Hyperlipidemia, unspecified; D64.9 Anemia, unspecified; E03.9 Hypothyroidism, unspecified; G47.33 Obstructive sleep apnea (adult) (pediatric); Z79.4 Long term (current) use of insulin; Z79.890 Hormone replacement therapy; Z79.899 Other long term (current) drug therapy; Z88.8 Allergy status to other drugs, medicaments and biological substances
CPT/HCPCS: 36558; 76937; 77001; 99152; 99153; C1750; C1769; C1894; J1644; J2250; J3010; J7030; J7050

== ENCOUNTER 2024-07-25 10:39 | Inpatient (IN) | payer OTHER ==
[2024-07-25] VITALS (11 sets, daily range): BP systolic 79–139; BP diastolic 43–88
[~2024-07-25] VITALS: Ht 167.6 cm; Wt 79.1 kg
[~2024-07-25 10:39] MED LIST changes: +EUTHYROX88 MCG PO
[2024-07-25 12:06] LABS: BASOPHILS ABSOLUTE AUTO 0.06 K/mm3 (0.00-0.23); BASOPHILS PERCENT AUTO 1 % (0-2); EOSINOPHILS ABSOLUTE AUTO 0.06 K/mm3 (0.00-0.68); EOSINOPHILS PERCENT AUTO 1 % (0-6); Hematocrit 32.3 % (33.0-51.0); Hemoglobin 9.9 g/dL (11.5-16.0); IMMATURE GRAN ABSOLUTE AUTO 0.23 K/mm3 (0.00-0.10); IMMATURE GRAN PERCENT AUTO 2 % (0-1); LYMPHOCYTES ABSOLUTE AUTO 2.03 K/mm3 (0.84-5.20); LYMPHOCYTES PERCENT AUTO 21 % (21-46); MONOCYTES ABSOLUTE AUTO 1.14 K/mm3 (0.16-1.47); MONOCYTES PERCENT AUTO 12 % (4-13); Mean Corpuscular HGB 27.3 pg (26.0-34.0); Mean Corpuscular HGB Conc 30.7 g/dL (31.5-36.5); Mean Corpuscular Volume 89 fL (80-100); Mean Platelet Volume 8.1 fL (9.1-12.4); NEUTROPHILS ABSOLUTE AUTO 6.22 K/mm3 (1.96-9.15); NEUTROPHILS PERCENT AUTO 64 % (41-73); Platelet Count 463 K/mm3 (150-400); RDW Coefficient Variation 14.8 % (11.7-14.2); RDW Standard Deviation 47.8 fL (35.1-46.3); Red Blood Cell Count 3.62 M/mm3 (3.80-5.20); White Blood Cell Count 9.74 K/mm3 (4.00-11.30)
[2024-07-25 12:21] LABS: Albumin, Blood 2.4 g/dL (3.4-5.0); Albumin/Globulin Ratio 0.5 (0.8-1.8); Bilirubin, Total 0.6 mg/dL (0.1-1.0); Bun/Creatinine Ratio 19.9 (12.0-20.0); Creatinine, Blood 5.43 mg/dL (0.40-1.00); Globulin, Blood 5.1 g/dL (2.2-4.0); Total Protein, Blood 7.5 g/dL (6.4-8.2)
[2024-07-25] MEDS ORDERED: Dextrose 50% 50 ML Syringe IV ONE (12:40)
[2024-07-25] MEDS ORDERED: Insulin Regular 100 Unit/ML 1ML Dose IV ONE (12:40)
[2024-07-25] MEDS ORDERED: Dextrose 50% 50 ML Vial IV ONE (12:45)
[2024-07-25] MEDS ORDERED: Calcium Chloride 10% 1,000 MG in NS 50 ML IV ONE (12:45)
[2024-07-25] MEDS ORDERED: Albuterol 2.5 MG/3 ML VIAL INH ONE (12:45)
[2024-07-25] MEDS ORDERED: Albumin (Human) 25gm/100ml 100 ML IV PRN (16:35)
--- NOTE | 2024-07-25 20:07 | NUR ---
1809 RECEIVED PT TO FROM DIALSIS NEW ER ADMIT. PT ADMITTED FOR HYPERKALEMIA, K+ 6.0. PT WITH NEW PERMA CATH AND FIRST TIME DIALYSIS, PER REPORT. NO FLUID TAKEN OFF TONIGHT, PER DOMESTIC MAID, JUST FILTERED. PT IS A&O, PLEASANT AND CO-OP. UP FROM [facility] AND ABLE TO AMBULATE TO [facility] USING FWW AND SBA. PT'S URINE IS VERY THICK AND PURULENT. PERIANAL AREA IS VERY RED AND EXCORIATED; REQUESTING ZINC OINTMENT. OPEN PRESSURE ULCER ON COCCYX; PT REPORTING THAT SHE THINKS IT HAS BEEN THERE FOR A WEEK. WOUND APPEARS TO BE TUNNELING; PICTURES TAKEN, BUT NOT MEASUREMENTS OF TUNNELING. WOUND CARE ORDERS NEEDED. PT ALSO REQUESTING TO BE DNR AND REPORTS ADVANCED DIRECTIVE AT HOME. REPORT GIVEN TO JESUS RN AND NOTE LEFT ON PT'S BOARD. LUNGS T/O WITH FINE CRACKLES IN THE BASES. PER REPORT, PT HAS IMPLANTED INSULIIN PUMP AND ABLE TO MONITOR CBG'S INDEPENDENTLY. 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 DENIES FURTHER NEEDS AT THIS TIME. REPORT GIVEN TO JEUSS LUNA.
[2024-07-25 20:18] LABS: Source, Urine Clean Catch
--- NOTE | 2024-07-25 20:28 | NUR ---
LAB CALLED TO REPORT POSSIBLY BEING UNABLE TO TEST URINE IT IS SO THICK IT DOES NOT POUR.
[2024-07-25 20:50] LABS: Color, Urine Other (P-Yellow)
[2024-07-25 20:51] LABS: Amorphous Heavy (0-Heavy); Bacteria Many /hpf; Mucus Heavy (0-Heavy); Red Blood Cells, Urine TNTC /hpf (0-2); Squamous Epithelial Cells Not Seen /hpf (Few); White Blood Cells, Urine TNTC /hpf (0-5)
[2024-07-25] MEDS ORDERED: oxyBUTYnin chloride 5 MG TAB PO SCH (21:00)
[2024-07-25] MEDS ORDERED: Metoprolol Tartrate 50 MG Tab PO SCH (21:00)
[2024-07-25] MEDS ORDERED: Heparin Sodium,Porcine 5,000 UNIT/0.5 ML SDV SC SCH (21:00)
[2024-07-25 21:33] LABS: Albumin, Blood 2.8 g/dL (3.4-5.0); Anion Gap 9 mmol/L (3-11); Blood Urea Nitrogen 51 mg/dL (8-24); CO2, Blood 31 mmol/L (21-32); Calcium, Blood 9.4 mg/dL (8.5-10.1); Chloride, Blood 102 mmol/L (98-108); Creatinine, Blood 3.19 mg/dL (0.40-1.00); Glomerular Filtration Rate 14 (60-); Glucose, Blood 280 mg/dL (70-99); Phosphorus, Blood 3.4 mg/dL (2.5-4.9); Potassium, Blood 4.1 mmol/L (3.5-5.5); Sodium, Blood 138 mmol/L (136-145)
[2024-07-25] MEDS ORDERED: Darbepoetin Alfa In Albumn Sol 40 MCG/0.4 ML SC SCH (22:00)
[2024-07-26] VITALS (18 sets, daily range): BP systolic 76–128; BP diastolic 33–79
[2024-07-26 04:48] LABS: BASOPHILS ABSOLUTE AUTO 0.05 K/mm3 (0.00-0.23); BASOPHILS PERCENT AUTO 1 % (0-2); EOSINOPHILS ABSOLUTE AUTO 0.06 K/mm3 (0.00-0.68); EOSINOPHILS PERCENT AUTO 1 % (0-6); Hematocrit 27.5 % (33.0-51.0); Hemoglobin 8.5 g/dL (11.5-16.0); IMMATURE GRAN ABSOLUTE AUTO 0.13 K/mm3 (0.00-0.10); IMMATURE GRAN PERCENT AUTO 2 % (0-1); LYMPHOCYTES PERCENT AUTO 22 % (21-46); MONOCYTES PERCENT AUTO 19 % (4-13); Mean Corpuscular HGB 27.2 pg (26.0-34.0); Mean Corpuscular HGB Conc 30.9 g/dL (31.5-36.5); Mean Corpuscular Volume 88 fL (80-100); Mean Platelet Volume 8.2 fL (9.1-12.4); NEUTROPHILS ABSOLUTE AUTO 3.26 K/mm3 (1.96-9.15); NEUTROPHILS PERCENT AUTO 55 % (41-73); Platelet Count 366 K/mm3 (150-400); RDW Coefficient Variation 14.9 % (11.7-14.2); RDW Standard Deviation 46.9 fL (35.1-46.3); Red Blood Cell Count 3.13 M/mm3 (3.80-5.20)
[2024-07-26 05:15] LABS: Albumin, Blood 2.6 g/dL (3.4-5.0); Anion Gap 12 mmol/L (3-11); Blood Urea Nitrogen 54 mg/dL (8-24); Bun/Creatinine Ratio 16.3 (12.0-20.0); CO2, Blood 28 mmol/L (21-32); Calcium, Blood 8.8 mg/dL (8.5-10.1); Chloride, Blood 103 mmol/L (98-108); Creatinine, Blood 3.32 mg/dL (0.40-1.00); Glomerular Filtration Rate 14 (60-); Glucose, Blood 143 mg/dL (70-99); Magnesium, Blood 2.1 mg/dL (1.6-2.4); Phosphorus, Blood 4.3 mg/dL (2.5-4.9); Potassium, Blood 4.9 mmol/L (3.5-5.5); Sodium, Blood 138 mmol/L (136-145)
[2024-07-26] MEDS ORDERED: Levothyroxine Sodium 0.088 MG Tab PO SCH (06:00)
[2024-07-26] MEDS ORDERED: Omeprazole 20 MG CapCR PO SCH (06:00)
--- NOTE | 2024-07-26 07:32 | NUR ---
SHIFT SUMMARY AT START OF SHIFT, PT HAD JUST BEEN ADMITTED BY DAY SHIFT. PT URINE SPECIMIN COLLECTED, BUT CULTURES COULD NOT BE RUN ON SAMPLE, THE MUCUS COUNT WAS TOO HIGH. PT ABLE TO AMBULATE TO BATHROOM WITH MINIMAL ASSISTANCE USING FWW. PT STATES SHE HAS SOME PAIN/SORENESS IN HER SHOULDERS, BUT REFUSES PAIN MEDICATION. WHEN OFFERED NON PHARMACEUTICAL MEANS OF PAIN MANAGEMENT, PT STATED, NO, I M ALRIGHT. REMINDED PT IF SHE NEEDS ANYTHING TO USE HER CALL LIGHT, AND SHE COULD GET HELP WITH PAIN MANAGEMENT. PT CURRENTLY SLEEPING PEACEFULLY IN BED. CALL LIGHT IN REACH. PT UP TO BATHROOM AGAIN. URINE STILL BLOOD AND MUCUS. DAY SHIFT RN NOTIFIED.
[2024-07-26] MEDS ORDERED: Sevelamer Carbonate 800 MG Tab PO SCH (08:30)
[2024-07-26] MEDS ORDERED: Bumetanide 1 MG Tab PO SCH (09:00)
[2024-07-26] MEDS ORDERED: Cholecalciferol 1000 Unit Tablet (=25MCG) PO SCH (09:00)
[2024-07-26] MEDS ORDERED: Atorvastatin 10 MG Tab PO SCH (09:00)
[2024-07-26] MEDS ORDERED: Vitamin B Cmplx/Vit C/Folic Ac 1 Tab PO SCH (12:35)
[2024-07-26] MEDS ORDERED: Ascorbic Acid 250 MG Chew PO SCH (12:40)
[2024-07-26] MEDS ORDERED: Zinc Sulfate 220 MG Cap (Provides 50MG) PO SCH (12:40)
[2024-07-26] MEDS ORDERED: Acetaminophen 500 MG Tab PO PRN (20:30)
[2024-07-26] MEDS ORDERED: Metoprolol Tartrate 25 MG Tab PO SCH (21:00)
[2024-07-27] VITALS (13 sets, daily range): BP systolic 78–125; BP diastolic 44–67
[2024-07-27 02:54] LABS: Source, Urine Clean Catch
[2024-07-27 03:06] LABS: Bilirubin, Urine Neg (Neg); Blood, Urine 5+ (Neg); Glucose Qualitative, Urine Neg (Neg); Ketones, Urine Neg (Neg); Leukocyte Esterase, Urine 3+ (Neg); Nitrite, Urine Neg (Neg); Protein, Urine 3+ (Neg); Urobilinogen, Urine NORM (Normal)
[2024-07-27 03:20] LABS: Appearance, Urine Hazy (Clear); Color, Urine Yellow (P-Yellow)
[2024-07-27 03:21] LABS: Bacteria Many /hpf; Red Blood Cells, Urine 50-100 /hpf (0-2); Squamous Epithelial Cells Mod /hpf (Few); White Blood Cells, Urine 50-100 /hpf (0-5)
[2024-07-27 05:01] LABS: Hematocrit 26.3 % (33.0-51.0); Hemoglobin 7.9 g/dL (11.5-16.0)
[2024-07-27 05:29] LABS: Albumin, Blood 2.8 g/dL (3.4-5.0); Anion Gap 8 mmol/L (3-11); Blood Urea Nitrogen 27 mg/dL (8-24); Bun/Creatinine Ratio 9.8 (12.0-20.0); CO2, Blood 34 mmol/L (21-32); Calcium, Blood 8.7 mg/dL (8.5-10.1); Chloride, Blood 96 mmol/L (98-108); Creatinine, Blood 2.76 mg/dL (0.40-1.00); Glomerular Filtration Rate 17 (60-); Glucose, Blood 133 mg/dL (70-99); Magnesium, Blood 1.6 mg/dL (1.6-2.4); Phosphorus, Blood 2.9 mg/dL (2.5-4.9); Potassium, Blood 3.9 mmol/L (3.5-5.5); Sodium, Blood 134 mmol/L (136-145)
--- NOTE | 2024-07-27 06:02 | NUR ---
SHIFT SUMMARY PT A&Ox4 AND PLEASANT. PT C/O SOME MILD PAIN. ORDER GIVEN FOR TYLENOL BUT PT DECLINED MEDICATION. FOAM DRESSING REMAINS C/D/I ON COCCYX. PT UP TO THE BATHROOM T/O NIGHT WITH PINK TINGED URINE AND THICK MUCAS. UA COLLECTED AND SENT TO LAB. VSS BUT BP SOFT. BED IN LOWEST POSITION AND CALL LIGHT IN REACH.
--- NOTE | 2024-07-27 15:29 | NUR ---
MET WITH PATIENT AND HER . PROVIDER HAD AN EXTENSIVE CONVERSATION ABOUT NEW DIALYSIS, FOLLOWED UP ON THIS CONVERSATION. PROVIDED PATIENT EMOTIONS SUPPORT ON HER NEW DIALYSIS. WE DISCUSSED BALANCE OF QUALITY AND QUANITITY AND MAKING LIFESTYLE CHANGES THAT ALSO PROVIDED HER WITH QUALITY. DISCUSSED FILLING OUT A POLST FORM. WILL FOLLOW UP IN THE MORNING.
[2024-07-28 02:14] VITALS: BP 111/58
--- NOTE | 2024-07-28 04:33 | NUR ---
SHIFT SUMMARY PT A&Ox4. DURING BEDSITE REPORT, PT VERBALIZED FRUSTRATION WITH CURRENT ILLNESS. BRADY, DAY SHIFT NURSE, SAT WITH PT FOR ABOUT 30min LISTENING TO PT AND TALKING WTIH PT ABOUT HER FRUSTRATIONS. PT VERBLIZED FRUSTATION WITH THE UNKNOWNS, FEELING LIKE A BURDEN TO HER , FEAR THAT IS NEAR AND THAT HER DAUGHTERS HAVEN'T COME TO VISIT. BRADY ADDRESSED THESE CONCERNS AND ENCOURGED PT TO UTALIZE PALLIATIVE CARE TO ADVOCATE FOR HER WISHES DURING THIS TIME. PT ALSO OFFERED PASTORAL CARE, WHICH SHE STATED SHE WOULD THINK ABOUT. PT HAS TUNNELING WOUND NEAR COCCYX, AWARE; AWAITING WOUND CARE ORDERS. FOAM DRESSING IN PLACE AND REMAINS C/D/I. PT UP TO THE BATHROOM T/O NIGHT WITH CLOUDY, PINK URINE WITH THICK MUCAS. SCD's IN PLACE. VSS. BED IN LOWEST POSITION AND CALL LIGHT IN REACH.
[2024-07-28 04:39] LABS: Hematocrit 29.4 % (33.0-51.0); Hemoglobin 8.7 g/dL (11.5-16.0)
[2024-07-28 04:58] LABS: Albumin, Blood 2.6 g/dL (3.4-5.0); Anion Gap 9 mmol/L (3-11); Blood Urea Nitrogen 19 mg/dL (8-24); Bun/Creatinine Ratio 6.8 (12.0-20.0); CO2, Blood 32 mmol/L (21-32); Calcium, Blood 8.8 mg/dL (8.5-10.1); Chloride, Blood 100 mmol/L (98-108); Creatinine, Blood 2.78 mg/dL (0.40-1.00); Glomerular Filtration Rate 17 (60-); Glucose, Blood 126 mg/dL (70-99); Magnesium, Blood 1.7 mg/dL (1.6-2.4); Phosphorus, Blood 2.8 mg/dL (2.5-4.9); Potassium, Blood 3.6 mmol/L (3.5-5.5); Sodium, Blood 137 mmol/L (136-145)
[2024-07-28 07:35] VITALS: BP 120/66
--- NOTE | 2024-07-28 11:54 | NUR ---
MET WITH PATIENT TO DISCUSS POLST. SHE ELECTED FOR DNR AND SELECTIVE TREATMENT. DISCUSSED CONCERNS ABOUT DIALYSIS. SHE IS CONCERNED ABOUT LACK OF FAMILY SUPPORT FROM HER DAUGHTERS. HER SON IS COMING TO SEE HER SOON, AND SHE IS LOOKING FORWARD TO HIS VISIT AND IS HOPEFUL THAT HE WILL HELP HER DAUGHTERS TO UNDERSTAND THE GRAVITY OF STARTING DIALYSIS. THERAPUTIC CONVERSATION. PROVIDER SIGNED POLST AND SENT TO MEDICAL RECORDS, AND REGISTRY. ORIGIONAL PLACED IN CHART.
[2024-07-28 15:52] VITALS: BP 90/54
[2024-07-28] MEDS ORDERED: IRBESARTAN150 M3 PO (18:20)
--- NOTE | 2024-07-28 18:35 | NUR ---
PT A&OX4, VSS, RA, NON-TELE. PT PLEASANT AND COOPERATIVE WITH CARES. UP TO BATHROOM 1 PA AND FWW, REPORTED LIGHT HEADEDNESS, THIS RN STAYED AT PT SIDE UNTIL SHE WAS SAFELY BACK IN BED. PT VOIDING CLOUDY URINE WITH MUCUS PT SON AND DAUGHTER VISITED TODAY. RN EDUCATED SON ON PLAN OF CARE AT THIS TIME. STILL AWAITING AN OUT PATIENT DIALYSIS CHAIR AT [facility]. NO DIALYSIS TODAY. PERMICATH IN PLACE RU CHEST, DRESSING CDI. PT DENIES PAIN. CALLS APPROPRIATLY, CALL LIGHT IN REACH.
[2024-07-28 19:52] VITALS: BP 121/59
[2024-07-28 22:29] VITALS: BP 121/59
[2024-07-29] VITALS (23 sets, daily range): BP systolic 80–140; BP diastolic 47–67
--- NOTE | 2024-07-29 04:25 | NUR ---
SUMMARY REPORT. PATIENT MAINTAIN A CALM SHIFT WITH US ,GENERAL ASSEMENT CARRIED OUT ,WOUND AT COCCYX REGION WHERE INSPECTED ,NIL DRAINAGE,COVERED WITH A PATCH PRESCRIBED ZINC OXIDE CREAM FOR SKIN RASHES WAS NOT GIVEN DUE TO PATIENT ALLERGY TO ZINC.PATIENT COMPLAIN DIZZINESS AFTER URINATING ,HER VITALS SIGNS WHERE CHECKED WHICH IS WITHIN NORMAL RANGE ACCEPT DIASTOLIC PRESSURE WHICH TO 59MMHG.ALL HER DUE MEDICATIONS WHERE SERVED,CALL LIGHT ANSWERD PROMPTLY ,ALL OTHER NEEDS WHERE ALSO MET.
[2024-07-29 04:49] LABS: Hematocrit 29.1 % (33.0-51.0); Hemoglobin 8.7 g/dL (11.5-16.0)
[2024-07-29 05:16] LABS: Albumin, Blood 2.6 g/dL (3.4-5.0); Anion Gap 10 mmol/L (3-11); Blood Urea Nitrogen 26 mg/dL (8-24); Bun/Creatinine Ratio 7.4 (12.0-20.0); CO2, Blood 30 mmol/L (21-32); Calcium, Blood 8.5 mg/dL (8.5-10.1); Chloride, Blood 98 mmol/L (98-108); Creatinine, Blood 3.52 mg/dL (0.40-1.00); Glomerular Filtration Rate 13 (60-); Glucose, Blood 180 mg/dL (70-99); Magnesium, Blood 1.6 mg/dL (1.6-2.4); Potassium, Blood 3.7 mmol/L (3.5-5.5); Sodium, Blood 134 mmol/L (136-145)
[2024-07-29] MEDS ORDERED: Albumin (Human) 25gm/100ml 100 ML IV PRN (08:35)
[2024-07-29] MEDS ORDERED: Midodrine 5 MG Tab PO SCH (09:00)
[2024-07-29 09:11] LABS: HEPATITIS B SURFACE ANTIBODY <3.10 IU/L
[2024-07-29 09:23] LABS: HEPATITIS B SURFACE ANTIGEN Negative (Negative)
[2024-07-29 09:44] LABS: HBV CORE ANTIBODIES,TOTAL Negative (Negative)
--- NOTE | 2024-07-29 17:30 | NUR ---
PT AOX4 AND COOPERATIVE OF CARE. PT HAS HAD DIALYSIS TODAY AND TOLERATED WELL. AT 1300 BP SYSTOLIC WAS 125 AND MIDODRINE WAS HELD, BUT A BIT LATER IN THE AFTERNOON PT STATED SHE FELT DIZZY AND HER SYSTOLIC WAS 90 AND MIDODRINE WAS GIVEN. PT IS ABLE TO MAKE NEEDS KNOWN AND CALL LIGHT IS IN REACH WILL CONTINUE TO MONITOR.
[2024-07-29] MEDS ORDERED: Metoprolol Tartrate 25 MG Tab PO SCH (21:00)
[2024-07-29] MEDS ORDERED: Mirtazapine 15 MG Tab PO SCH (21:00)
[2024-07-30] VITALS (8 sets, daily range): BP systolic 105–141; BP diastolic 45–57
--- NOTE | 2024-07-30 02:53 | NUR ---
patient diaognised with end stage renal disease,volume over load, hyponatremia, anemia and hypertion. haemodialysis where also scheduled.During day shift hand over patient was alert and oriented on physical examination ,no shortness of breath ,lungs where clear no crackles , breaths on normal room air, slight lower extremity oedema, scd applied,monitor every 20mins,prophylasis inj heparin where given with other due medications. patient where encourage to use bed side commade with assistance to aid ambulation and encourage tolerabe physical exercise, patient was on tele with sinus reading of 66 call light answered promptly , haemodialysis as per schedule. schedule. schedule,she is also on heart diet. schedule.
--- NOTE | 2024-07-30 04:01 | NUR ---
SHITF SUMMARY PATIENT DIAGNOSIS HYPERKALAMIA,HYPOTHYROID DYSLIPIDERMIA,CODE DNR,PATIENT IS ON AN INSULIN PUMP WHICH SHE MANAGES BY HERSLF, DIASTOIIC BLOOD PRESSURE > 120 METROPROLOL SHOULD NOT BE NOT GIVEN, SHE WAS ALERT AND ORIENTEDN TO PLACE AND TIME, PATIENT RESPONDED WELL ON DIALYSIS,CALL LIGHT ANSWERWD ACCORDING TO HER NEEDS ,ALL HER DUE MEDICATION WHERE SERVED NILL FRESH COMPLAINT.
[2024-07-30 04:42] LABS: Hematocrit 30.1 % (33.0-51.0); Hemoglobin 9.2 g/dL (11.5-16.0)
[2024-07-30 04:57] LABS: Albumin, Blood 3.1 g/dL (3.4-5.0); Anion Gap 10 mmol/L (3-11); Blood Urea Nitrogen 17 mg/dL (8-24); Bun/Creatinine Ratio 5.9 (12.0-20.0); CO2, Blood 31 mmol/L (21-32); Calcium, Blood 8.6 mg/dL (8.5-10.1); Chloride, Blood 95 mmol/L (98-108); Creatinine, Blood 2.88 mg/dL (0.40-1.00); Glomerular Filtration Rate 16 (60-); Glucose, Blood 162 mg/dL (70-99); Magnesium, Blood 1.7 mg/dL (1.6-2.4); Phosphorus, Blood 2.6 mg/dL (2.5-4.9); Potassium, Blood 3.5 mmol/L (3.5-5.5); Sodium, Blood 132 mmol/L (136-145)
[2024-07-30] MEDS ORDERED: Bumetanide 1 MG Tab PO SCH (09:00)
[2024-07-30] MEDS ORDERED: Midodrine 5 MG Tab PO ONE (14:00)
--- NOTE | 2024-07-30 15:56 | NUR ---
AT 1348 AID HAD PT ON SHOWER CHAIR AND PT BECAME UNRESPONSIVE TEMPORARILY. AID CALLED FOR ASSISTANCE AND THIS RN CAME INTO ROOM. PT STARTED TO RESPOND IMMEDIATELY. WHEELCHAIR WAS BROUGHT IN AND PT TRANSFERED TO ROOM. PT HAD BEEN RUNNING LOW WITH A BP PRIOR TO EPISODE OF 105/55 P50 AND SCHEDULED MIDODRINE HAD BEEN ADMINISTERED. PT'S VITALS AFTER EPISODE WERE 111/47 P71 SITTING ON SIDE OF BED. DR GUY WAS NOTFIED AND CHANGED DOSING OF MIDODRINE ON EMAR. PT SHOWED NO OTHER SYMTOMS AND WAS BACK TO TALKING AND ACTING LIKE HER SELF.CALL LIGHT WAS PLACED IN REACH.
--- NOTE | 2024-07-30 16:26 | NUR ---
PT HAS BEEN AOX4 FEELING TIRED AND HAS BEEN AMBULATING TO [facility] ASSIST. PT HAS STATED SHE HAS BEEN FEELING LIGHT HEADED WHEN SHE SITS ON THE TOILET FOR AWHILE. DR GUY IS AWARE. PT RESTING IN BED CURRENTLY. NO DISTRESS NOTED. WILL CONTINUE TO MONITOR.
[2024-07-30] MEDS ORDERED: Midodrine 5 MG Tab PO SCH (18:00)
[2024-07-30] MEDS ORDERED: Miconazole Nitrate 2% 85 GM PWD TOP SCH (21:00)
[2024-07-30 21:01] LABS: Source, Urine Clean Catch
[2024-07-30 21:11] LABS: Bilirubin, Urine Neg (Neg); Blood, Urine 5+ (Neg); Glucose Qualitative, Urine Neg (Neg); Ketones, Urine Neg (Neg); Leukocyte Esterase, Urine 3+ (Neg); Nitrite, Urine Neg (Neg); Protein, Urine 3+ (Neg); Urobilinogen, Urine NORM (Normal)
[2024-07-30 21:12] LABS: Appearance, Urine Turbid (Clear); Color, Urine Yellow (P-Yellow)
[2024-07-30 21:17] LABS: Bacteria Many /hpf; Squamous Epithelial Cells Not Seen /hpf (Few); White Blood Cells, Urine TNTC /hpf (0-5)
[2024-07-30] MEDS ORDERED: Acetaminophen 325 MG TABLET PO PRN (23:15)
[2024-07-31] VITALS (27 sets, daily range): BP systolic 73–164; BP diastolic 39–147
[2024-07-31] MEDS ORDERED: CefTRIAXone Sodium 1,000 MG in NS 100 ML IV SCH (00:39)
[2024-07-31] MEDS ORDERED: NS 250 ML IV PRN (01:50)
[2024-07-31] MEDS ORDERED: Dextrose 50% 50 ML Vial IV ONE (03:05)
[2024-07-31] MEDS ORDERED: Dextrose 5% 250 ML IV PRN (03:10)
[2024-07-31 05:12] LABS: BASOPHILS PERCENT AUTO 1 % (0-2); EOSINOPHILS ABSOLUTE AUTO 0.16 K/mm3 (0.00-0.68); EOSINOPHILS PERCENT AUTO 1 % (0-6); Hematocrit 29.7 % (33.0-51.0); IMMATURE GRAN PERCENT AUTO 3 % (0-1); LYMPHOCYTES ABSOLUTE AUTO 2.63 K/mm3 (0.84-5.20); LYMPHOCYTES PERCENT AUTO 19 % (21-46); MONOCYTES ABSOLUTE AUTO 1.85 K/mm3 (0.16-1.47); MONOCYTES PERCENT AUTO 13 % (4-13); Mean Corpuscular HGB 26.8 pg (26.0-34.0); Mean Corpuscular HGB Conc 30.3 g/dL (31.5-36.5); Mean Corpuscular Volume 88 fL (80-100); Mean Platelet Volume 8.3 fL (9.1-12.4); NEUTROPHILS ABSOLUTE AUTO 8.87 K/mm3 (1.96-9.15); NEUTROPHILS PERCENT AUTO 63 % (41-73); Platelet Count 331 K/mm3 (150-400); RDW Coefficient Variation 14.7 % (11.7-14.2); RDW Standard Deviation 47.1 fL (35.1-46.3); Red Blood Cell Count 3.36 M/mm3 (3.80-5.20); White Blood Cell Count 14.01 K/mm3 (4.00-11.30)
--- NOTE | 2024-07-31 05:17 | NUR ---
SHIFT SUMMARY PT GOT UP TO THE TOILET EARLIER THIS SHIFT AND BECAME DIAPHORETIC AND WASNT RESPONDING TO THE STAFF. WE ASSISTED HER BACK TO THE BED AND VS WERE TAKEN. HER HR AT THE TIME WAS AT 46. HER URINE WAS VERY CLOUDY AND PUS LOOKING WITH A REAL FOUL ODOR. CALLED DR. HOPE AND HE GAVE ORDERS TO GET A UA AND START HER ON TELEMETRY. I DID A UA AND THE RESULTS CAME BACK SHOWING A UTI. I AGAIN CALLED THE MD AND GOT A ORDER TO GIVE ROCEPHIN NOW AND THEN QDAY. I GAVE THE ROCEPHIN. PT HAD A DEXCOM ON WHERE SHE WAS MONITORING HER OWN INSULIN AND INSULIN WAS BEING GIVEN THROUGH HER INSULIN PUMP. HER BATTERIES RAN OUT YESTERDAY MORNING AND SHE HAD TO CHANGE OUT HER BATTERIES AND HER DEXCOM. AT 0050 I CHECKED WITH HER TO SEE IF SHE HAD A BLOOD SUGAR READING AND IT WASNT WORKING. I CHECKED HER FS AND IT WAS 86 AT 0053. AT 0250 I WENT INTO THE PTS ROOM AND SHE WAS NOT RESPONDING AND ONLY HAD A BLANK STARE. I CHECKED HER VS AND THEY WERE GOOD AND THEN I CHECKED HER FS AND IT WAS AT 16. I CALLED DR. PELAYO AND GOT A ORDER TO GIVE 2 AMPS OF D50 AND TO CHECK THE FS Q1HR UNTIL ITS STABLE I GAVE THE 2 AMPS AT 0300 THEN RECHECKED THE FS AT 0315 AND IT WAS 392. AT 0415 IT WAS 229 AND AT 0515 IT WAS 193. HER TELEMETRY IS NOW AT NSR AT 62. SHES AWAKE AND ALERT ORIENTED X 4. SHES SLEEPING AT THIS TIME WITH HER CALL LIGHT IN REACH.
[2024-07-31 05:41] LABS: Bun/Creatinine Ratio 7.9 (12.0-20.0); Calcium, Blood 8.4 mg/dL (8.5-10.1); Creatinine, Blood 3.42 mg/dL (0.40-1.00); Potassium, Blood 3.1 mmol/L (3.5-5.5)
[2024-07-31] MEDS ORDERED: Insulin Glargine-Yfgn 100 Unit/mL 3 ML SYR SC ONE (07:45)
[2024-07-31] MEDS ORDERED: Potassium Chloride 20 MEQ/15 ML UDC PO ONE (08:50)
[2024-07-31 09:09] LABS: Magnesium, Blood 1.7 mg/dL (1.6-2.4); Phosphorus, Blood 2.6 mg/dL (2.5-4.9)
--- NOTE | 2024-07-31 10:07 | NUR ---
WAITING TO GIVE ORAL POTASSIUM ORDERED PER DIALYSIS NURSE PT IS IN DIALYSIS CURRENTLY.
--- NOTE | 2024-07-31 10:09 | NUR ---
LATE NOTE FOR 07/30/24 PT HAD BANDAGE CHANGED ON COCCYX ADDED VERY SMALL AMOUNT OF CALCUIM ALGINATE TO THE OPEN WOUND 0.5CM DEEP WIDTH 0.7 SIDE NO INFECTION NOTED REDNESS NOTED BILATERALLY MEPIPLEX APPLIED OVER AREA.
[2024-07-31] MEDS ORDERED: Insulin Human Lispro 100 Units/ML 3ML Syringe SC SCH (11:30)
[2024-07-31] MEDS ORDERED: NS 250 ML IV ONE (15:15)
--- NOTE | 2024-07-31 16:58 | NUR ---
PT STARTED TO DAY BY HAVING DIALYSIS AND ARRIVED BACK TO ROOM AOX4 AND COOPERATIVE OF CARE. PT CONTINUES TO HAVE LOW BPs AND SYSTOLIC LOW 100-108 AND HAS RECIEVED MIDODRINE PER EMAR. PT DID ORTHOSTATICS AT 1502 AND HER LAYING DOWN BP WAS 105/66 P66, SITTING 80/45 P97 THEN STANDING 73/39 P97. PT WANTED TO TRY TO HAVE A BM WITH LOW BPs AND BECAME UNRESPONSIVE AND WAS ASSISTED INTO HER BED SHE WAS SITTING ON BEDSIDE COMMODE. PT RECOVERED IMMEDIATELY UPON LAYING FLAT WITH FEET ELEVATED. DR GARCIA WAS NOTIFIED AND HE ORDERED A NS 250ML BOLUS. PT HAS BEEN FEELING WHILE LAYING IN BED. PT WAS INCONTENT OF A BM AND CALLED AID FOR ASSISTANCE. CALL LIGHT IS IN REACH WILL CONTINUE TO MONITOR.
[2024-08-01] VITALS (18 sets, daily range): BP systolic 93–136; BP diastolic 42–78
--- NOTE | 2024-08-01 04:44 | NUR ---
SHIFT SUMMARY PATIENT IS ALERT AND ORIENTED X3. PATIENT HAS HAD NO ACUTE EVENTS THIS SHIFT. VITAL SIGNS REVIEWED. PATIENT WAS AMBULATING WITH PUBLIC SERVICES LIBRARIAN TO BEDSIDE COMMODE AND BECAME DIZZY, ONCE PLACED BACK IN BED PATIENT "FELT FINE" PER PATIENT. PATIENT HAS HAD NO COMPLAINTS OF PAIN, NAUSEA, SOB OR VOMITTING THIS SHIFT. WOUND CARE WAS DONE BY DAY SHIFT AND ORDERS STATE ONE A WEEK DRESSING CHANGES. IV ABX INFUSED ORDERED. BED IN LOCKED AND LOWEST POSITION. CALL LIGHT IN PLACE.
[2024-08-01 05:07] LABS: BASOPHILS PERCENT AUTO 1 % (0-2); EOSINOPHILS ABSOLUTE AUTO 0.16 K/mm3 (0.00-0.68); EOSINOPHILS PERCENT AUTO 2 % (0-6); Hematocrit 33.1 % (33.0-51.0); IMMATURE GRAN ABSOLUTE AUTO 0.24 K/mm3 (0.00-0.10); IMMATURE GRAN PERCENT AUTO 2 % (0-1); LYMPHOCYTES ABSOLUTE AUTO 4.02 K/mm3 (0.84-5.20); LYMPHOCYTES PERCENT AUTO 39 % (21-46); MONOCYTES ABSOLUTE AUTO 1.52 K/mm3 (0.16-1.47); MONOCYTES PERCENT AUTO 15 % (4-13); Mean Corpuscular HGB 26.7 pg (26.0-34.0); Mean Corpuscular HGB Conc 30.2 g/dL (31.5-36.5); Mean Corpuscular Volume 89 fL (80-100); Mean Platelet Volume 8.5 fL (9.1-12.4); NEUTROPHILS PERCENT AUTO 42 % (41-73); Platelet Count 397 K/mm3 (150-400); RDW Coefficient Variation 14.9 % (11.7-14.2); RDW Standard Deviation 47.7 fL (35.1-46.3); Red Blood Cell Count 3.74 M/mm3 (3.80-5.20); White Blood Cell Count 10.44 K/mm3 (4.00-11.30)
[2024-08-01 05:29] LABS: Albumin/Globulin Ratio 0.7 (0.8-1.8); Bilirubin, Total 0.5 mg/dL (0.1-1.0); Bun/Creatinine Ratio 6.7 (12.0-20.0); Calcium, Blood 8.6 mg/dL (8.5-10.1); Creatinine, Blood 2.84 mg/dL (0.40-1.00); Globulin, Blood 4.3 g/dL (2.2-4.0); Magnesium, Blood 1.8 mg/dL (1.6-2.4); Phosphorus, Blood 2.3 mg/dL (2.5-4.9); Potassium, Blood 4.1 mmol/L (3.5-5.5); Total Protein, Blood 7.3 g/dL (6.4-8.2)
[2024-08-01] MEDS ORDERED: Sodium Phosphate 10 MM in Dextrose 5% 250 ML IV ONE (07:15)
[2024-08-01] MEDS ORDERED: Insulin Glargine-Yfgn 100 Unit/mL 3 ML SYR SC SCH (09:00)
--- NOTE | 2024-08-01 15:44 | NUR ---
Spiritual care visit conducted. The patient is lying in bed and alert. She tells me about her new path of dialysis and the rolloer coaster of emotions this has sent her on. She talks about her solid family support and her concern about being a burden. They live in [place] and it is a bit of a drive 3xs a wk to drive to town. She talks about the good converations she has had with her family and her hopes about the future all of which appear to elevate her mood and help her begin to frame her situation in a more positive light. I will continue to remain available to patient and fmaily.
--- NOTE | 2024-08-01 18:48 | NUR ---
SHIFT SUMMARY: PT A&O X4. PLEASANT AND COOPERATIVE WITH CARE. PT HAD DIALYSIS THIS AM. STILL AWAITING CHAIR TIME AT [facility] TO BE ABLE TO DISCHARGE. SLIGHT HYPOTENSION NOTED THIS SHIFT. MIDODRINE GIVEN PER EMAR. TELEPHONE ORDER FROM DR. MARTIN THIS AM FOR 10 mmOL SODIUM PHOSPHATE AND PROVIDED PER EMAR. PHYSICAL THERAPY WORKED WITH PT THIS SHIFT. ONE PERSON ASSIST TO BATHROOM. CALL LIGHT IN REACH. BED IN LOWEST POSITION.
[2024-08-02] VITALS (19 sets, daily range): BP systolic 94–147; BP diastolic 39–70
--- NOTE | 2024-08-02 02:53 | NUR ---
WAS CALLED TO ROOM 363 - BATHROOM FOR PT HAVING SYNCOPAL EPISODE ON TOILET. RETURNED PT TO BED. BLOOD PRESSURE DONE. PT SOMEWHAT HYPOTENSIVE. REVIEW ASSISTANT WAS AT PT'S SIDE WHEN THIS OCCURRED. PT STATES SHE DOES NOT RECALL ANY OF THIS EPISODE. DISCUSSED WITH PRIMARY RN, SENG. WILL DO ORTHOSTATIC BLOOD PRESSURES ON PT NEXT TIME SHE NEEDS TO USE TOILET. WILL ALSO USE BEDSIDE COMMODE TO URINATE VERSUS AMBULATING TO BATHROOM.
[2024-08-02 04:44] LABS: Hematocrit 29.7 % (33.0-51.0)
[2024-08-02 05:17] LABS: Albumin, Blood 2.7 g/dL (3.4-5.0); Anion Gap 9 mmol/L (3-11); Blood Urea Nitrogen 16 mg/dL (8-24); Bun/Creatinine Ratio 6.8 (12.0-20.0); CO2, Blood 31 mmol/L (21-32); Calcium, Blood 8.5 mg/dL (8.5-10.1); Chloride, Blood 95 mmol/L (98-108); Creatinine, Blood 2.37 mg/dL (0.40-1.00); Glomerular Filtration Rate 20 (60-); Glucose, Blood 179 mg/dL (70-99); Magnesium, Blood 1.8 mg/dL (1.6-2.4); Phosphorus, Blood 2.6 mg/dL (2.5-4.9); Potassium, Blood 3.4 mmol/L (3.5-5.5); Sodium, Blood 132 mmol/L (136-145)
--- NOTE | 2024-08-02 05:43 | NUR ---
SHIFT SUMMARY PATIENT IS ALERT AND ORIENTED. SEE PRIOR NOTE ABOUT INCIDENT PATIENT HAD IN BATHROOM WITH SYNCOPAL EPISODE. PATIENT HAS HAD NO OTHER ACUTE EVENTS THIS SHIFT. PATIENT HAS HAD NO COMPLAINTS OF PAIN, NAUSEA, SOB OR VOMITTING THIS SHIFT. VITAL SIGNS HAVE BEEN SOFT THIS SHIFT. BED IN LOCKED AND LOWEST POSITION. CALL LIGHT IN PLACE.
[2024-08-02] MEDS ORDERED: Potassium Chloride 10 Meq Tablet SA PO ONE (06:00)
[2024-08-02] MEDS ORDERED: Albumin (Human) 25gm/100ml 100 ML IV SCH (07:35)
[2024-08-02] MEDS ORDERED: Acetaminophen325 M1 PO (14:15)
[2024-08-02] MEDS ORDERED: NEPHRO VITAMIN0.8 MG PO (14:17)
[2024-08-02] MEDS ORDERED: BUME2 PO (14:17)
[2024-08-02] MEDS ORDERED: INSULANPEN SC (14:18)
[2024-08-02] MEDS ORDERED: HUMALOG KW100 UNIT/1 SC (14:20)
[2024-08-02] MEDS ORDERED: CEFP200 PO (14:22)
[2024-08-02] MEDS ORDERED: MIDO5 PO (14:22)
--- NOTE | 2024-08-02 15:17 | NUR ---
DISCHARGE PT WORKED WITH PHYSICAL THERAPY TODAY, HAD HD, AND SHOWERED PRIOR TO DC. PT & EDUCATED ON NEW MEDICATIONS, AND FOLLOW UP APPOINTMENTS NEEDED. iT WAS STRESSED TO THE PATIENT AND HER THAT SHE NEEDS TO CHANGE POSITIONS SLOWLY IN ORDER TO REDUCE CHANGES IN HER BLOOD PRESSURE. PT AND STATE THEY UNDERSTAND. PT ENCOURAGED TO START TAKING HER BP EVERY MORNING AND LOGGING IT FOR HER FUTURE DR APPOINTMENTS. PT DISCHARGED AND INSTRUCTED TO GO STRAIGHT TO [facility] FOR HER INTAKE APPOINTMENT TODAY AT 1530. PT WHEELED OUT BY FLOR & DRIVEN BY HER , LALA.
[2024-08-02] MEDS ORDERED: Darbepoetin Alfa In Albumn Sol 40 MCG/0.4 ML SC ONE (16:00)
== END 2024-08-02 15:18 | disposition home health service (06) | DRG 640 ==
LOC: ER 10:39 → MEDS 14:13 → ERHOLD 14:13 → MEDS 18:04
PROVIDERS: Internal Medicine; Internal Medicine Nephrology; Nurse Practitioner Acute Care; Student in an Organized Health Care Education/Training Program; ADMIT Family Medicine
PROC: 5A1D70Z Performance of Urinary Filtration, Intermittent, Less than 6 Hours Per Day (ICD-10-PCS; principal; 2024-07-25)
DX: E87.5 Hyperkalemia (principal); N18.6 End stage renal disease; N25.81 Secondary hyperparathyroidism of renal origin; N39.0 Urinary tract infection, site not specified; I12.0 Hypertensive chronic kidney disease with stage 5 chronic kidney disease or end stage renal disease; N17.9 Acute kidney failure, unspecified; E87.70 Fluid overload, unspecified; D63.1 Anemia in chronic kidney disease; E11.22 Type 2 diabetes mellitus with diabetic chronic kidney disease; E87.1 Hypo-osmolality and hyponatremia; E87.20 Acidosis, unspecified; R60.0 Localized edema; B96.1 Klebsiella pneumoniae [K. pneumoniae] as the cause of diseases classified elsewhere; E03.9 Hypothyroidism, unspecified; F32.A Depression, unspecified; F41.9 Anxiety disorder, unspecified; K21.9 Gastro-esophageal reflux disease without esophagitis; E78.5 Hyperlipidemia, unspecified; Z99.2 Dependence on renal dialysis; E55.9 Vitamin D deficiency, unspecified; G47.33 Obstructive sleep apnea (adult) (pediatric); R63.0 Anorexia; I95.1 Orthostatic hypotension; E87.6 Hypokalemia; E83.39 Other disorders of phosphorus metabolism; E11.649 Type 2 diabetes mellitus with hypoglycemia without coma; Z96.41 Presence of insulin pump (external) (internal); Z79.4 Long term (current) use of insulin; Z88.8 Allergy status to other drugs, medicaments and biological substances; Z79.890 Hormone replacement therapy; Z79.82 Long term (current) use of aspirin; Z68.29 Body mass index [BMI] 29.0-29.9, adult
CPT/HCPCS: 36415; 80048; 80053; 80069; 81001; 82947; 83735; 84100; 85014; 85018; 85025; 86704; 87077; 87086; 87186; 87340; 93005; 93010; 94640; 94664; 94760; 96365; 97116; 97161; 97530; 99284-25; A9270; J0696; J0881; J1644; J1815; J7050; J7060; J7799; P9047

== ENCOUNTER → 2024-08-22 | Outpatient (CLI) | payer OTHER ==
[~2024-08-22] MED LIST changes: +Acetaminophen325 M1 PO; +BUME2 PO; +CEFP200 PO; +HUMALOG KW100 UNIT/1 SC; +INSULANPEN SC; +MIDO5 PO; +NEPHRO VITAMIN0.8 MG PO
[2024-08-22 18:15] LABS: BASOPHILS ABSOLUTE AUTO 0.09 K/mm3 (0.00-0.23); BASOPHILS PERCENT AUTO 1 % (0-2); EOSINOPHILS ABSOLUTE AUTO 0.27 K/mm3 (0.00-0.68); EOSINOPHILS PERCENT AUTO 3 % (0-6); Hematocrit 34.7 % (33.0-51.0); Hemoglobin 10.4 g/dL (11.5-16.0); IMMATURE GRAN ABSOLUTE AUTO 0.04 K/mm3 (0.00-0.10); IMMATURE GRAN PERCENT AUTO 0 % (0-1); LYMPHOCYTES ABSOLUTE AUTO 3.69 K/mm3 (0.84-5.20); LYMPHOCYTES PERCENT AUTO 38 % (21-46); MONOCYTES ABSOLUTE AUTO 0.94 K/mm3 (0.16-1.47); MONOCYTES PERCENT AUTO 10 % (4-13); Mean Corpuscular HGB 27.2 pg (26.0-34.0); Mean Corpuscular Volume 91 fL (80-100); Mean Platelet Volume 8.7 fL (9.1-12.4); NEUTROPHILS ABSOLUTE AUTO 4.68 K/mm3 (1.96-9.15); NEUTROPHILS PERCENT AUTO 48 % (41-73); Platelet Count 298 K/mm3 (150-400); RDW Coefficient Variation 16.3 % (11.7-14.2); RDW Standard Deviation 54.6 fL (35.1-46.3); Red Blood Cell Count 3.82 M/mm3 (3.80-5.20); White Blood Cell Count 9.71 K/mm3 (4.00-11.30)
[2024-08-22 18:18] LABS: Albumin/Globulin Ratio 0.8 (0.8-1.8); Bilirubin, Total 0.7 mg/dL (0.1-1.0); Bun/Creatinine Ratio 8.7 (12.0-20.0); Calcium, Blood 9.3 mg/dL (8.5-10.1); Creatinine, Blood 2.52 mg/dL (0.40-1.00); Globulin, Blood 3.8 g/dL (2.2-4.0); Potassium, Blood 3.7 mmol/L (3.5-5.5); Total Protein, Blood 6.8 g/dL (6.4-8.2)
== END ==
LOC: LAB 16:36 → LAB SHORT 16:36
PROVIDERS: Physician Assistant
DX: E11.65 Type 2 diabetes mellitus with hyperglycemia (principal)
CPT/HCPCS: 80053; 83036; 85025

== ENCOUNTER 2024-11-04 03:13 | Emergency (ER) | payer OTHER ==
[~2024-11-04] VITALS: Ht 167.6 cm; Wt 81.7 kg
[2024-11-04 03:46] LABS: BASOPHILS ABSOLUTE AUTO 0.06 K/mm3 (0.00-0.23); BASOPHILS PERCENT AUTO 1 % (0-2); EOSINOPHILS ABSOLUTE AUTO 0.02 K/mm3 (0.00-0.68); EOSINOPHILS PERCENT AUTO 0 % (0-6); Hematocrit 29.6 % (33.0-51.0); Hemoglobin 9.2 g/dL (11.5-16.0); IMMATURE GRAN ABSOLUTE AUTO 0.42 K/mm3 (0.00-0.10); IMMATURE GRAN PERCENT AUTO 4 % (0-1); LYMPHOCYTES ABSOLUTE AUTO 2.05 K/mm3 (0.84-5.20); LYMPHOCYTES PERCENT AUTO 19 % (21-46); MONOCYTES ABSOLUTE AUTO 0.98 K/mm3 (0.16-1.47); MONOCYTES PERCENT AUTO 9 % (4-13); Mean Corpuscular HGB Conc 31.1 g/dL (31.5-36.5); Mean Corpuscular Volume 92 fL (80-100); NEUTROPHILS ABSOLUTE AUTO 7.28 K/mm3 (1.96-9.15); NEUTROPHILS PERCENT AUTO 67 % (41-73); NRBC ABSOLUTE 0.00 K/mm3 (0.00-0.02); NRBC Auto 0.0 /100 WBC (0.0-0.2); Platelet Count 342 K/mm3 (150-400); RDW Coefficient Variation 16.2 % (11.7-14.2); RDW Standard Deviation 54.3 fL (35.1-46.3)
[2024-11-04 04:01] LABS: Alanine Aminotransfer (ALT/SGP 9.0 U/L (12-78); Albumin, Blood 1.4 g/dL (3.4-5.0); Albumin/Globulin Ratio 0.3 (0.8-1.8); Anion Gap 8.0 mmol/L (3-11); Aspartate Aminotrans (AST/SGOT 24.0 U/L (12-37); Bilirubin, Total 0.8 mg/dL (0.1-1.0); Blood Urea Nitrogen 31.0 mg/dL (8-24); CO2, Blood 28.0 mmol/L (21-32); Calcium, Blood 7.5 mg/dL (8.5-10.1); Chloride, Blood 104.0 mmol/L (98-108); Creatinine, Blood 3.25 mg/dL (0.40-1.00); Globulin, Blood 4.1 g/dL (2.2-4.0); Glucose, Blood 200.0 mg/dL (70-99); Potassium, Blood 3.6 mmol/L (3.5-5.5); Sodium, Blood 136.0 mmol/L (136-145); Total Protein, Blood 5.5 g/dL (6.4-8.2)
[2024-11-04 08:28] VITALS: BP 95/53
[2024-11-04] MEDS ORDERED: HUMALOG KW100 UNIT/1 SC (08:36)
[2024-11-04] MEDS ORDERED: INSULANI SC (08:36)
== END 2024-11-04 09:01 | disposition home or self-care (01) ==
LOC: ER 03:13
PROVIDERS: Student in an Organized Health Care Education/Training Program
DX: T85.694A Other mechanical complication of insulin pump, initial encounter (principal); E11.649 Type 2 diabetes mellitus with hypoglycemia without coma; E78.5 Hyperlipidemia, unspecified; I10 Essential (primary) hypertension; E11.40 Type 2 diabetes mellitus with diabetic neuropathy, unspecified; G47.33 Obstructive sleep apnea (adult) (pediatric); Z79.2 Long term (current) use of antibiotics; Z79.899 Other long term (current) drug therapy; Z79.82 Long term (current) use of aspirin; Z88.8 Allergy status to other drugs, medicaments and biological substances
CPT/HCPCS: 80053; 82947; 85025; 99285

== ENCOUNTER 2024-11-13 00:45 | Day surgery (SDC) | payer OTHER ==
[~2024-11-13 00:45] MED LIST changes: +INSULANI SC
== END 2024-11-13 23:00 | disposition home or self-care (01) ==
LOC: WOUND 00:45
DX: L89.152 Pressure ulcer of sacral region, stage 2 (principal); E11.622 Type 2 diabetes mellitus with other skin ulcer; I12.0 Hypertensive chronic kidney disease with stage 5 chronic kidney disease or end stage renal disease; E11.22 Type 2 diabetes mellitus with diabetic chronic kidney disease; N18.6 End stage renal disease; E03.9 Hypothyroidism, unspecified; M19.90 Unspecified osteoarthritis, unspecified site; E11.40 Type 2 diabetes mellitus with diabetic neuropathy, unspecified; Z88.8 Allergy status to other drugs, medicaments and biological substances; Z99.2 Dependence on renal dialysis
CPT/HCPCS: G0463

== ENCOUNTER 2024-11-20 01:02 | Day surgery (SDC) | payer OTHER ==
[2024-11-20] MEDS ORDERED: Lidocaine HCl 4% Cream 5 GM ONE (13:44)
== END 2024-11-20 23:00 | disposition home or self-care (01) ==
LOC: WOUND 01:02
DX: L89.152 Pressure ulcer of sacral region, stage 2 (principal); I12.0 Hypertensive chronic kidney disease with stage 5 chronic kidney disease or end stage renal disease; E11.22 Type 2 diabetes mellitus with diabetic chronic kidney disease; N18.6 End stage renal disease; Z99.2 Dependence on renal dialysis
CPT/HCPCS: A9270; G0463

== ENCOUNTER 2024-11-27 00:45 | Day surgery (SDC) | payer OTHER ==
[2024-11-27] MEDS ORDERED: Lidocaine HCl 4% Cream 5 GM ONE (13:36)
== END 2024-11-27 23:00 | disposition home or self-care (01) ==
LOC: WOUND 00:45
DX: L89.152 Pressure ulcer of sacral region, stage 2 (principal); I12.0 Hypertensive chronic kidney disease with stage 5 chronic kidney disease or end stage renal disease; E11.22 Type 2 diabetes mellitus with diabetic chronic kidney disease; N18.6 End stage renal disease; Z99.2 Dependence on renal dialysis
CPT/HCPCS: A9270; G0463

== ENCOUNTER 2024-12-01 15:07 | Inpatient (IN) | payer OTHER ==
[~2024-12-01] VITALS: Ht 167.6 cm; Wt 76.5 kg
[2024-12-01] VITALS (20 sets, daily range): BP systolic 66–120; BP diastolic 33–71
[2024-12-01] MEDS ORDERED: NS 1,000 ML IV SCH (15:20)
[2024-12-01 15:47] LABS: Hematocrit 34.4 % (33.0-51.0); Hemoglobin 10.8 g/dL (11.5-16.0); Mean Corpuscular HGB Conc 31.4 g/dL (31.5-36.5); Mean Corpuscular Volume 94 fL (80-100); NRBC ABSOLUTE 0.02 K/mm3 (0.00-0.02); NRBC Auto 0.3 /100 WBC (0.0-0.2); Platelet Count 314 K/mm3 (150-400); RDW Coefficient Variation 17.1 % (11.7-14.2); RDW Standard Deviation 58.2 fL (35.1-46.3)
[2024-12-01 16:10] LABS: Alanine Aminotransfer (ALT/SGP 19.0 U/L (12-78); Albumin, Blood 1.6 g/dL (3.4-5.0); Albumin/Globulin Ratio 0.3 (0.8-1.8); Anion Gap 12.0 mmol/L (3-11); Aspartate Aminotrans (AST/SGOT 19.0 U/L (12-37); Bilirubin, Total 1.1 mg/dL (0.1-1.0); Blood Urea Nitrogen 40.0 mg/dL (8-24); CO2, Blood 31.0 mmol/L (21-32); Calcium, Blood 8.2 mg/dL (8.5-10.1); Chloride, Blood 92.0 mmol/L (98-108); Creatinine, Blood 3.79 mg/dL (0.40-1.00); Globulin, Blood 4.7 g/dL (2.2-4.0); Glucose, Blood 146.0 mg/dL (70-99); Magnesium, Blood 2.1 mg/dL (1.6-2.4); Phosphorus, Blood 3.0 mg/dL (2.5-4.9); Potassium, Blood 3.7 mmol/L (3.5-5.5); Sodium, Blood 131.0 mmol/L (136-145); Total Protein, Blood 6.3 g/dL (6.4-8.2)
[2024-12-01 16:19] LABS: BASOPHILS ABSOLUTE MAN 0.00 K/mm3 (0.00-0.23); BASOPHILS PERCENT MAN 0 % (0-2); EOSINOPHILS ABSOLUTE MAN 0.28 K/mm3 (0.00-0.68); EOSINOPHILS PERCENT MAN 4 % (0-6); LYMPHOCYTES ABSOLUTE MAN 1.37 K/mm3 (0.84-5.20); LYMPHOCYTES PERCENT MAN 19 % (21-46); MONOCYTES ABSOLUTE MAN 0.00 K/mm3 (0.16-1.47); MONOCYTES PERCENT MAN 0 % (4-13); NEUTROPHILS ABSOLUTE MAN 5.55 K/mm3 (1.96-9.15); SEG NEUTROPHILS PERCENT MAN 77 % (41-73)
[2024-12-01] MEDS ORDERED: Piperacillin/Tazobactam Sod 4.5 GM in NS 100 ML IV ONE (16:20)
[2024-12-01] MEDS ORDERED: Vancomycin (Pharmacy Consult) IV PRN (17:25)
[2024-12-01] MEDS ORDERED: Vancomycin (Pharmacy Consult) IV SCH (17:40)
[2024-12-01 18:35] LABS: Source, Urine Clean Catch
[2024-12-01 18:54] LABS: Bilirubin, Urine Neg (Neg); Glucose Qualitative, Urine Neg (Neg); Ketones, Urine Neg (Neg); Leukocyte Esterase, Urine 3+ (Neg); Protein, Urine 4+ (Neg); Specific Gravity, Urine 1.010 (1.003-1.022); Urobilinogen, Urine NORM (Normal)
[2024-12-01 18:55] LABS: Color, Urine Pale Yellow (P-Yellow)
[2024-12-01 18:56] LABS: White Blood Cells, Urine TNTC /hpf (0-5)
[2024-12-01 18:57] LABS: Red Blood Cells, Urine 25-50 /hpf (0-2)
--- NOTE | 2024-12-01 20:00 | NUR ---
ASSUMPTION OF CARE/ADMISSION TO UNIT PT ARRIVED FROM ED VIA [facility] AT 1903. PT IN NO APPARENT DISTRESS, ALERT AND ORIENTED, WITH LOW TEMP 96.0 F. LEVOPHED INFUSING AT 3MCG/MIN. MAP > 65; WILL TITRATE NEEDED. SINUS RHYTHM WITH ELEVATED RATE IN THE 120'S. PT DENIES CHEST PAIN/PRESSURE, SOB, AB PAIN, N/V. PT ADMITS TO PAIN IN COCCYX AND NECK- WILL ADVOCATE FOR MEDICATION. PT ON 4L NC UPON ARRIVAL AND QUICKLY TITRATED OFF. PT HAS H/O OS EDGAR WITH CPAP THOUGH RECENTLY STOPPED USE OF DEVICE DUE TO TINNITUS. SAT 95% ON RA. LUNGS CLEAR AND DIMINISHED IN THE BASES. BOWEL SOUNDS ACTIVE. LEAL IN PLACE DRAINING MILKY/GREEN/YELLOW URINE TO GRAVITY- CULTURE PENDING. PT FAMILY STOPPED BY BRIEFLY DURING ASSESSMENT AND LEFT. PT HAS STAGE 3 COCCYGEAL WOUND. PROVIDER NOTIFIED. PICS TAKEN AND CHARTED AFTER CONSENT OBTAINED. PT ALSO HAS REDNESS AND FLAKY SKIN IN RIGHT INGUINAL FOLD- WILL ADVOCATE FOR YEAST INFECTION TREATMENT.
[2024-12-01] MEDS ORDERED: Heparin Sodium,Porcine 5,000 UNIT/0.5 ML SDV SC SCH (21:00)
[2024-12-01] MEDS ORDERED: Darbepoetin (Pharmacy Consult) SC SCH (21:10)
[2024-12-01] MEDS ORDERED: FentaNYL Citrate 50 MCG/ML 2 ML Injection IV PRN (22:05)
[2024-12-02] VITALS (83 sets, daily range): BP systolic 59–130; BP diastolic 35–95
[2024-12-02 03:05] LABS: Hematocrit 32.0 % (33.0-51.0); Hemoglobin 10.0 g/dL (11.5-16.0)
--- NOTE | 2024-12-02 03:14 | NUR ---
UPDATE: HR CHANGED FROM 120'S SINUS RHYTHM TO VARIABLE 65-80 WITH MANY PVC'S. CALLED PROVIDER AND ORDER PLACED FOR EKG AND EARLY LABS. PT NON SYMPTOMATIC- NO CHEST PAIN/PRESSURE, SOB, AMS.
[2024-12-02 03:29] LABS: Albumin, Blood 1.3 g/dL (3.4-5.0); Anion Gap 9 mmol/L (3-11); Blood Urea Nitrogen 45 mg/dL (8-24); CO2, Blood 31 mmol/L (21-32); Calcium, Blood 7.5 mg/dL (8.5-10.1); Chloride, Blood 95 mmol/L (98-108); Creatinine, Blood 4.19 mg/dL (0.40-1.00); Glucose, Blood 127 mg/dL (70-99); Magnesium, Blood 1.7 mg/dL (1.6-2.4); Phosphorus, Blood 2.7 mg/dL (2.5-4.9); Potassium, Blood 3.4 mmol/L (3.5-5.5); Sodium, Blood 132 mmol/L (136-145); Vancomycin, Random 24.7 ug/mL
[2024-12-02] MEDS ORDERED: Potassium Chl 10MEQ/Water100ML 100 ML IV ONE (04:00)
[2024-12-02] MEDS ORDERED: Insulin Human Lispro 100 Units/ML 3ML Syringe SC SCH ×2 (06:00→21:00)
[2024-12-02 07:01] LABS: Hematocrit 31.6 % (33.0-51.0); Hemoglobin 9.9 g/dL (11.5-16.0); Mean Corpuscular HGB Conc 31.3 g/dL (31.5-36.5); Mean Corpuscular Volume 94 fL (80-100); NRBC ABSOLUTE 0.00 K/mm3 (0.00-0.02); NRBC Auto 0.0 /100 WBC (0.0-0.2); Platelet Count 287 K/mm3 (150-400); RDW Coefficient Variation 17.4 % (11.7-14.2); RDW Standard Deviation 58.6 fL (35.1-46.3)
--- NOTE | 2024-12-02 07:13 | NUR ---
SHIFT SUMMARY PT LYING IN BED, IN NO APPARENT DISTRESS, ALERT AND ORIENTED TO ALL, IN PAIN (COCCYX, HEAD, AND NECK), BUT ONLY WHEN SHE MOVES. ADMINISTERED ONE DOSE OF 25MCG FENTANYL ALL SHIFT. AFEBRILE TO LOW TEMP ALL SHIFT. HR WENT FROM 120'S TO 70'S AND THEN BACK AGAIN. THIS PROMPTED AN ECG ORDER AND QUICK LABS, BOTH OF WHICH SHOWED NO NOTABLE CHANGES. CVC DRESSING WAS CHANGED. FOULD SMELLING, MILKY GREEN LEAL OUTPUT MEASURED 140 ML FOR A 12 SHIFT. PT WAS GIVEN 10MCG OF KCL FOR REPLACEMENT. BEDSIDE SHIFT REPORT GIVEN TO JESUS ABDALLA RN.
[2024-12-02 08:48] LABS: BAND PERCENT MAN 13 % (0-8); BASOPHILS ABSOLUTE MAN 0.00 K/mm3 (0.00-0.23); BASOPHILS PERCENT MAN 0 % (0-2); EOSINOPHILS ABSOLUTE MAN 0.35 K/mm3 (0.00-0.68); EOSINOPHILS PERCENT MAN 4 % (0-6); LYMPHOCYTES ABSOLUTE MAN 3.21 K/mm3 (0.84-5.20); LYMPHOCYTES PERCENT MAN 36 % (21-46); MONOCYTES ABSOLUTE MAN 0.35 K/mm3 (0.16-1.47); MONOCYTES PERCENT MAN 4 % (4-13); NEUTROPHILS ABSOLUTE MAN 5.00 K/mm3 (1.96-9.15); SEG NEUTROPHILS PERCENT MAN 43 % (41-73)
[2024-12-02] MEDS ORDERED: Insulin Glargine-Yfgn 100 Unit/mL 3 ML SYR SC SCH (09:00)
[2024-12-02] MEDS ORDERED: Piperacillin/Tazobactam Sod 4.5 GM in NS 100 ML IV SCH (09:00)
[2024-12-02] MEDS ORDERED: Insulin Glargine-Yfgn 100 Unit/mL 3 ML SYR SC ONE (09:00)
[2024-12-02] MEDS ORDERED: Piperacillin/Tazobactam Sod 3.375 GM in NS 100 ML IV SCH (09:00)
--- NOTE | 2024-12-02 09:55 | NUR ---
ASSUMPTION OF CARE ASSUMED CARE OF PATIENT AT APPROXIOMATOLEY 0700. PT RESTING IN BED, ALERT AND ORIENTED X4. PT ANSWERS QUESTIONS APPROPRIATELY, FOLLOWS DIRECTION WHEN PROMPTED AND IS ABLE TO MAKE HER NEEDS KNOWN. PT MOVES EXTREMITIES EQUALLY BILATERALLY. HR 70-130'S, IRREGULAR RHYTHM, DR. CHOW NOTIFIED, EKG PERFORMED. LEVOPHED INFUSING AT 6MCG/MIN TO MAINTAIN MAP >65. PT DENIES CP/PRESSURE. PT ON RA, OXYGEN SATURATION >95%. ABDOMEN SOFT, BOWEL TONES ACTIVE THROGUHOUT. LEAL IN PLACE PATENT DRAINING THICK GREENISH TINGED URINE. CENTRAL LINE IN PLACE TO LEFT GROIN. BED IN LOWEST POSITION, CALL LIGHT WITHIN REACH, CARE CONTINUES.
[2024-12-02] MEDS ORDERED: NS 500 ML IV ONE ×3 (13:45→14:42)
--- NOTE | 2024-12-02 13:45 | NUR ---
PT UPDATE CALL PLACED TO DR. CHOW REGARDING HEART RATE/RHYTHM AND BLOOD PRESSURE. ORDERS RECEIVED. CARE CONTINUES.
[2024-12-02] MEDS ORDERED: Midazolam HCl 1MG / ML 2ML Vial ONE (14:41)
[2024-12-02] MEDS ORDERED: FentaNYL Citrate 50 MCG/ML 2 ML Injection ONE ×2 (14:41→16:00)
--- NOTE | 2024-12-02 15:04 | NUR ---
DR WHALEY PREVIOUSLY AT BEDSIDE TO DISCUSS PROCEDURE AND OBTAINED CONSENT. PT TAKEN TO DIVER ASSISTANT AT THIS TIME.
[2024-12-02] MEDS ORDERED: Darbepoetin Alfa In Albumn Sol 40 MCG/0.4 ML SC SCH (16:00)
--- NOTE | 2024-12-02 16:45 | NUR ---
PT UPDATE PT BACK FROM HEEL SEAM RUBBER. BILATERAL NEPHROSTOMY TUBES IN PLACE, DRESSINGS INTACT, DRAINING SANGUINEOUS OUTPUT. PT ALERT AND ORIENTED, VITAL SIGNS STABLE, LEVOPHED INFUSING, SEE FLOWSHEET FOR TITRATIONS. BED IN LOWEST POSITION, CALL LIGHT WITHIN REACH, CARE CONTINUES.
--- NOTE | 2024-12-02 18:17 | NUR ---
SHIFT SUMMARY PT CONTINUES TO REST IN BED, SLEEPING BUT AROUSABLE. PT ORIENTED X4, ANSWERS QUESTIONS APPROPRIATLEY, FOLLOWS DIRECTION WHEN PROMPTED AND IS ABLE TO MAKE HER NEEDS KNOWN. PT MOVES EXTREMITIES EQUALLY BILATERALLY, ASSISTS WITH TURNS. HR 70-130'S IRREGULAR RHYTHM, PROVIDER AWARE, LEVOPHED INFUSING AT 12MCG/MIN TO MAINTAIN MAP >65. PT DENIES CP/PRESSURE. PT ON RA, OXYGEN SATURATION >95%. ABDOMEN SOFT, BOWEL TONES ACTIVE THROUGHOUT. LEAL IN PLACE PATENT WITH GREEN THICK OUTPUT. BILATERAL NEPHROSTOMY TUBES PLACED THIS SHIFT WITH SEROUS OUTPUT, DRESSINGS C/D/I. CENTRAL LINE IN PLACE TO LEFT FEMORAL. BED IN LOWEST POSITION, CALL LIGHT WITHIN REACH, CARE CONTINUES.
--- NOTE | 2024-12-02 19:28 | NUR ---
ASSUMPTION OF CARE CARE OF PT ASSUMED FOLLOWING BEDSIDE SHIFT REPORT FROM DAY RN. PT LYING IN BED IN NO APPARENT DISTRESS, ALERT AND ORIENTED. PT C/O PAIN IN COCCYX AND NECK/BACK WITH MOVEMENT. PT RHYTHM IS IRREGULAR AND RATE ALTERNATES RATE FROM 70'S TO 120-130'S. PT ON QUAD STRENGTH LEVO AT 12. TITRATION HAS BEEN DIFFICULT DUE TO NON INVASIVE BP VARIABILITY. PT DENEIS CHEST PAIN/PRESSURE, SOB, AB PAIN, N/V BUT ENDORSES DECREASED APPETITE. BILATERAL UROSTOMY TODAY WITH BOTH AREAS DRAINING SANGUINOUS FLUID AT LOW RATE; DRESSINGS C/D/I/SOFT. LEAL HAS MINIMAL OUTPUT OF MILKY, FOUL SMELLING SUBSTANCE. WILL REVIEW AND CONTINUE PLAN OF CARE.
[2024-12-03] VITALS (101 sets, daily range): BP systolic 56–153; BP diastolic 35–117
[2024-12-03 05:05] LABS: Hematocrit 31.6 % (33.0-51.0); Hemoglobin 10.0 g/dL (11.5-16.0); Mean Corpuscular HGB Conc 31.6 g/dL (31.5-36.5); Mean Corpuscular Volume 93 fL (80-100); NRBC ABSOLUTE 0.00 K/mm3 (0.00-0.02); NRBC Auto 0.0 /100 WBC (0.0-0.2); Platelet Count 259 K/mm3 (150-400); RDW Coefficient Variation 17.5 % (11.7-14.2); RDW Standard Deviation 58.8 fL (35.1-46.3)
[2024-12-03 05:37] LABS: Alanine Aminotransfer (ALT/SGP 16 U/L (12-78); Albumin, Blood 1.3 g/dL (3.4-5.0); Albumin/Globulin Ratio 0.4 (0.8-1.8); Anion Gap 11 mmol/L (3-11); Aspartate Aminotrans (AST/SGOT 17 U/L (12-37); Bilirubin, Total 0.9 mg/dL (0.1-1.0); Blood Urea Nitrogen 50 mg/dL (8-24); CO2, Blood 27 mmol/L (21-32); Calcium, Blood 7.4 mg/dL (8.5-10.1); Chloride, Blood 97 mmol/L (98-108); Creatinine, Blood 4.36 mg/dL (0.40-1.00); Globulin, Blood 3.7 g/dL (2.2-4.0); Glucose, Blood 101 mg/dL (70-99); Magnesium, Blood 1.7 mg/dL (1.6-2.4); Phosphorus, Blood 3.3 mg/dL (2.5-4.9); Potassium, Blood 3.3 mmol/L (3.5-5.5); Sodium, Blood 132 mmol/L (136-145); Total Protein, Blood 5.0 g/dL (6.4-8.2); Vancomycin, Random 18.8 ug/mL
[2024-12-03 06:23] LABS: BAND PERCENT MAN 20 % (0-8); BASOPHILS ABSOLUTE MAN 0.00 K/mm3 (0.00-0.23); BASOPHILS PERCENT MAN 0 % (0-2); EOSINOPHILS ABSOLUTE MAN 0.66 K/mm3 (0.00-0.68); EOSINOPHILS PERCENT MAN 4 % (0-6); LYMPHOCYTES ABSOLUTE MAN 2.48 K/mm3 (0.84-5.20); LYMPHOCYTES PERCENT MAN 15 % (21-46); MONOCYTES ABSOLUTE MAN 0.49 K/mm3 (0.16-1.47); MONOCYTES PERCENT MAN 3 % (4-13); NEUTROPHILS ABSOLUTE MAN 12.91 K/mm3 (1.96-9.15); SEG NEUTROPHILS PERCENT MAN 58 % (41-73)
--- NOTE | 2024-12-03 07:32 | NUR ---
SHIFT SUMMARY PT LYING IN BED, IN NO APPARENT DISTRESS, ALERT AND ORIENTED TO ALL, IN PAIN (COCCYX, HEAD, AND NECK), BUT ONLY WHEN SHE MOVES. ADMINISTERED 3 DOSES OF 25MCG FENTANYL ALL SHIFT. AFEBRILE TO LOW TEMP ALL SHIFT. HEART RHYTHM STAYED VARIABLE AND IRREGULAR AT TIMES WITH MOUNTING PVCS. PT ON 14 OF LEVOPHED. NO CHEST PAIN/PRESSURE OR SOB ALL SHIFT. CVC DRESSING WAS CHANGED. FOUL SMELLING, MILKY GREEN LEAL OUTPUT MEASURED 30 ML FOR A 12 SHIFT. BILATERAL NEPHROSTOMY TUBE IN PLACE WITH CLEAN, DRY DRESSINGS. OUTPUT WAS SEROSANGUINOUS 55 ON LEFT AND 78ML ON RIGHT. PT HAD 3 LOOSE INCONTINENT STOOLS STARTING AT 0100. ORDER PLACED FOR PROBIOTICS. BEDSIDE SHIFT REPORT GIVEN TO JESUS ABDALLA RN.
[2024-12-03] MEDS ORDERED: FentaNYL Citrate 50 MCG/ML 2 ML Injection IV PRN (08:40)
[2024-12-03] MEDS ORDERED: Lactobacil 2-S.Thermo-Bifido 1 1 Cap PO SCH (09:00)
[2024-12-03] MEDS ORDERED: Insulin Glargine-Yfgn 100 Unit/mL 3 ML SYR SC SCH (09:00)
--- NOTE | 2024-12-03 11:06 | NUR ---
ASSUMPTION OF CARE ASSUMED CARE OF PT AT 0700, RECIVED REPORT FROM ERICH LUNA. PT IS A&O X4 AND ABLE TO MAKE NEEDS KNOWN. CONTINOUS CARDIAC MONITORING IN PLACE SHOWING HR IN THE 50'S-80'S, LEVOPHED INFUSING AT 14 MCG/MIN AT START OF SHIFT, CURRENTLY INFUSING AT 16 MCG/MIN TO MAINTAIN MAP > 65, SEE FLOW SHEET FOR TITRATIONS. PT IS ON RA WITH SPO2 > 92%. NEHPROSTOMY TUBES ARE IN PLACE AND DRAINING, DRESSINGS ARE C/D/I. LEAL IS PATENT AND DRAINING TO GRAVITY. CENTRAL LINE IN PLACE TO LEFT GROIN AND HD CATH IN PLACE TO RIGHT CHEST. BED IN LOWEST POSITION, CALL LIGHT IN REACH, CARE CONTINUES.
--- NOTE | 2024-12-03 14:49 | NUR ---
PT UPDATE DR CHOW CALLED AND INFORMED OF URINE CULTURE, CARE CONTINUES.
[2024-12-03] MEDS ORDERED: Piperacillin/Tazobactam Sod 4.5 GM in NS 100 ML IV SCH (15:00)
--- NOTE | 2024-12-03 15:54 | NUR ---
PALLIATIVE CARE CONSULT: REQUESTED VISIT TO DISCUSS GOC. REVIEWED MEDICAL RECORD, SPOKE TO MD, PRIMARY RN PRIOR TO VISIT. CALLED SPOUSE TO SET UP GOC CONFERENCE WITH DAUGHTER AND PT. MET WITH PT, DAUGHTER AND SPOUSE JEWELS IN THE ROOM. PT IS AWAKE AND ANSWERING QUESTIONS APPROPRIATELY, ABLE TO MAKE INFORMED DECISIONS AT THIS TIME. DISCUSSED GOC. PT STATES SHE DOES NOT WANT TO GO TO SNF. IF SHE CANNOT DISCHARGE HOME WITH HOME HEALTH SERVICES SHE WOULD PREFER TO GO HOME ON HOSPICE. EDUCATED HER ON RISKS OF STOPPING HD AND INFORMED HER SHE WILL NOT BE ABLE TO CONTINUE WITH HOSPICE SERVICES. EDUCATED ON BENEFITS HOSPICE SERVICES PROVIDE, INFORMED CAREGIVER ASSISTANCE WILL BE OUT OF POCKET AND NEED TO BE SET UP BY FAMILY. PT STATES SHE WOULD LIKE TO GO HOME WITH HOME HEALTH IF POSSIBLE. DISCUSSED BARRIERS TO GOING HOME WITH HOME HEALTH. SPOUSE STATED HER CARE NEEDS ARE GETTING TO GREAT FOR HIM, SHE IS WEAK AND NEEDS LIFTING ASSISTANCE HE CAN NO LONGER COMPLETE. SUGGESTED PT BE IN HOSPITAL BED AND UTILIZE AVIVA LIFT, HOSPITAL BED, BSC, BEDPAN FOR MOBILITY AND TOILETING NEEDS. FAMILY AGREEABLE TO EQUIPMENT NEEDS AND HAVING PLACED IN HOME. PT STATES SHE HAS NO APPETITE TO EAT REGULAR FOOD AND EXISTS ON NEPRO PROTEIN SHAKES. PT ALSO STATES SHE SLEEPS ALL DAY. WHEN ASKED IF SHE FEELS DOWN OR DEPRESSED SHE STATED YES. ALSO REPORTS PAIN TO BOTTOM FROM HER WOUND BARRIER TO GETTING UP AND EXERCISING. SUGGESTED MEDICATION FOR THESE SYMPTOMS AND PT IS AGREEABLE TO TRYING MEDICATION FOR APPETITE, SLEEP AND S/S OF DEPRESSION. PT AGREEABLE TO PT/OT IN HOSPITAL TO MAKE PROGRESS IN GAINING STRENGTH WITH HOPES TO RETURN HOME WITH HOME HEALTH SERVICES. CALLED DR. CHOW AND HE ORDERED MIRTAZAPINE 15 MG PO BEDTIME, PT/OT. ORDERS PLACED REQUESTED.
[2024-12-03] MEDS ORDERED: FUROSEMIDE IV ONE (17:15)
[2024-12-03] MEDS ORDERED: NS IV ONE (17:15)
--- NOTE | 2024-12-03 18:34 | NUR ---
SHIFT SUMMARY PT CONTINUES TO REST IN BED, ALERT AND ORIENTED X4. PT ANSWERS QUESTIONS APPROPRIATELY, FOLLOWS DIRECTION WHEN PROMPTED AND IS ABLE TO MAKE HER NEEDS KNOWN. PT MOVES EXTREMITIES EQUALLY BILATERALLY. HR 50-80'S IRREGULAR, LEVOPHED INFUSING TO MAINTAIN MAP >65, SEE FLOWSHEET FOR TITRATIONS. PT DENIES CP/PRESSURE. PT PLACED ON 2LPM VIA NC WHILE NAPPING TO MAINTAIN OXYGEN SATURATION >92%. ABDOMEN SOFT, BOWEL TONES ACTIVE THROUGHOUT, PT HAS HAD MULTIPLE BMS THIS SHIFT. LEAL IN PLACE, NO OUTPUT THIS SHIFT, PROVIDER AWARE, LEAL FLUSHED WITH NO OUTPUT. BILATERAL NEPHROSTOMY TUBES IN PLACE, FLUSHED PER DR. WHALEY. CENTRAL LINE IN PLACE TO LEFT FEMORAL. BED IN LOWEST POSITION, CALL LIGHT WITHIN REACH, CARE CONTINUES.
[2024-12-03] MEDS ORDERED: Vasopressin 20 UNITS in NS 100 ML IV SCH (18:55)
[2024-12-04] VITALS (59 sets, daily range): BP systolic 52–132; BP diastolic 29–84
[2024-12-04] MEDS ORDERED: Amiodarone HCl 150 MG in NS 100 ML IV ONE (04:30)
[2024-12-04 05:08] LABS: Hematocrit 35.4 % (33.0-51.0); Hemoglobin 11.2 g/dL (11.5-16.0)
[2024-12-04 05:41] LABS: Albumin, Blood 1.6 g/dL (3.4-5.0); Anion Gap 13 mmol/L (3-11); Blood Urea Nitrogen 53 mg/dL (8-24); CO2, Blood 24 mmol/L (21-32); Calcium, Blood 8.1 mg/dL (8.5-10.1); Chloride, Blood 98 mmol/L (98-108); Creatinine, Blood 4.92 mg/dL (0.40-1.00); Glucose, Blood 90 mg/dL (70-99); Magnesium, Blood 1.9 mg/dL (1.6-2.4); Phosphorus, Blood 3.6 mg/dL (2.5-4.9); Potassium, Blood 3.9 mmol/L (3.5-5.5); Sodium, Blood 131 mmol/L (136-145); Vancomycin, Random 25.5 ug/mL
[2024-12-04] MEDS ORDERED: NS 100 ML IV ONE (06:25)
--- NOTE | 2024-12-04 07:33 | NUR ---
SHIFT SUMMARY: PT REMAINS A&OX4, ABLE TO COMMUNICATE NEEDS AND FOLLOW COMMANDS. AFEBRILE T/O THE NIGHT. PT HAD LABILE BLOOD PRESSURES T/O THE NIGHT. LEVOPHED AND VASOPRESSIN TITRATED TO MAINTAIN MAP >65, SEE TITRATION FLOWSHEET. PRIOR TO SHIFT CHANGE, ORDERS WERE GIVEN TO ADMINISTER DIURETICS TO PT PER DR MARTIN., DUE TO PTS MINIMAL OUTPUT IN THE 24-48HRS PRIOR. SOMETIME DURING SHIFT CHANGE, ORDERS WERE VERIFIED W/ HOSPITALIST WHO INSTRUCTED TO ADMINISTER DIURETICS AFTER STABILIZING BP AND MAP. THIS RN ADMINISTERED FUROSEMIDE PER EMAR ORDERS. PT SBP NOTED TO DECREASE AND PRESSORS WERE TITRATED ACCORDINGLY. T/O THE NIGHT PRESSORS HAD TO BE REPEATEDLY TITRATED. AROUND 0400 PT NOTED TO HAVE INCREASED HR INTO THE 150S AND RUNS OF RVR. PT DENIED CHEST PAIN OR SOB. REMAINED ASYMPTOMATIC. EKG TAKEN PER PROTOCOL AND CALL TO DR HOPE WAS MADE. ORDERS OBTAINED, INCLUDING ORDER FOR AMIODORONE. PT WAS RECEPTIVE TO AMIODORONE, HR DECREASED INTO 70-90S. REMAINED ASYMPTOMATIC, CONTINUED TO DENY SOB/CP. PT PRESSURES CONTINUED TO BE LABILE DESPITE INTERVENTIONS. CALL MADE TO DR MARTIN ON OR AROUND 0530 AND ORDERS RECEIVED FOR INCREASE TO MIDODRINE AND DIALYSIS FOR TODAY. ANOTHER CALL WAS MADE TO DR HOPE AND ORDERS OBTAINED FOR COMMUNITY INTEGRATION SPECIALIST CONSULT. DURING SHIFT CHANGE, LEVOPHED MAXED OUT W/ VASOPRESSIN INFUSION ONGOING-SEE TITRATION FLOWSHEET. PT REMAINS A&OX4. PTS MAIN C/O REMAINS HER COCCYX WHICH HAS LARGE WOUND TO AREA, COVERED W/MEPLEX. PT MOVES EXTREMITIES EQUALLY BILATERALLY. PT ON 2L O2 VIA NC. LUNGS CLEAR/DIM. SATS>90%. ABD SOFT, BT ACTIVE T/O. PT HAD MULTIPLE BMS THIS SHIFT-LOOSE/WATERY. RECTAL TUBE PLACED. LEAL REMAINS IN PLACE, DRAINING TO GRAVITY. BILATERAL NEPHROSTOMY TUBES IN PLACE W/ R TUBE DRAINING THICK-LIKE YELLOWISH URINE AND L TUBE DRAINING SEROSANGUINOUS FLUID. CENTRAL LINE IN PLACE TO LEFT FEMORAL. DIALYSIS PORT TO [facility]. REPORT GIVEN TO DAY SHIFT RN.
[2024-12-04] MEDS ORDERED: NS 500 ML IV ONE (07:35)
--- NOTE | 2024-12-04 08:00 | NUR ---
ASSUMED CARE NOTE: ASSUMED CARE OF PT AT 0700, PT IS ALERT AND ORIENTED X 4, ABLE TO FOLLOW COMMANDS AND COMMUNICATE NEEDS. PT HYPOTENSIVE, LEVOPHED AT MAX RATE 50MCG/MIN, VASOPRESSIN INFUSING AT 0.04UNITS/MIN. CREDIT UNION FIELD EXAMINER CONSULTED FOR A-LINE INSERTION. A-LINE PLACED AT 0745 TO LEFT RADIAL SITE, PT TOLERATED PROCEDURE WELL. PT REMAINS ON 2L OF OXYGEN VIA NASAL CANNULA, SpO2 ABOVE 92% NO RESP DISTRESS NOTED. BILATERAL NEPHRO TUBES IN PLACE. LEAL PATENT, DRAINING TO GRAVITY. BED AT LOWEST LEVEL, CALL LIGHT WITHIN REACH.
[2024-12-04 09:01] LABS: BASOPHILS ABSOLUTE AUTO 0.10 K/mm3 (0.00-0.23); BASOPHILS PERCENT AUTO 1 % (0-2); Hematocrit 29.5 % (33.0-51.0); Hemoglobin 9.7 g/dL (11.5-16.0); LYMPHOCYTES ABSOLUTE AUTO 2.36 K/mm3 (0.84-5.20); LYMPHOCYTES PERCENT AUTO 12 % (21-46); MONOCYTES ABSOLUTE AUTO 0.84 K/mm3 (0.16-1.47); MONOCYTES PERCENT AUTO 4 % (4-13); Mean Corpuscular HGB Conc 32.9 g/dL (31.5-36.5); Mean Corpuscular Volume 91 fL (80-100); NRBC ABSOLUTE 0.03 K/mm3 (0.00-0.02); NRBC Auto 0.2 /100 WBC (0.0-0.2); Platelet Count 232 K/mm3 (150-400); RDW Coefficient Variation 17.8 % (11.7-14.2); RDW Standard Deviation 58.9 fL (35.1-46.3)
[2024-12-04 09:08] LABS: EOSINOPHILS ABSOLUTE AUTO 0.43 K/mm3 (0.00-0.68); EOSINOPHILS PERCENT AUTO 2 % (0-6); IMMATURE GRAN ABSOLUTE AUTO 0.34 K/mm3 (0.00-0.10); IMMATURE GRAN PERCENT AUTO 2 % (0-1); NEUTROPHILS ABSOLUTE AUTO 15.08 K/mm3 (1.96-9.15); NEUTROPHILS PERCENT AUTO 79 % (41-73)
[2024-12-04] MEDS ORDERED: Lidocaine 2% Viscous Soln 20 ML,Nystatin 100,000 Unit/ml Susp 20 ML,Mag Hydrox/Al Hydro... MT PRN (10:40)
--- NOTE | 2024-12-04 13:34 | NUR ---
DIALYSIS COAT ROOM ATTENDANT AND READIED FOR HD ORDERED. UPON ARRIVAL AT PT'S BEDSIDE THIS NURSE INFORMED BY ICU ROTARY PUMP OPERATOR THAT PT IS TOO HEMODYNAMICALLY UNSTABLE TO TOLERATE HD TODAY. UNABLE TO OBTAIN BP AT THIS TIME. CURRENTLY ATTEMPTING TO PLACE ART LINE. ICU SALES SUPPORT ADMINISTRATOR WISHES TO HOLD HD AT THIS TIME. DR MARTIN INFORMED OF THESE FINDINGS BY PHONE
[2024-12-04] MEDS ORDERED: Albumin (Human) 12.5gm/250ml 250 ML IV ONE (13:55)
--- NOTE | 2024-12-04 14:28 | NUR ---
Spiritual care visit conducted. The patient is lying in bed and alert. Palliative Care RN Chacorta is holding the patient's hand. Family are bedside and very supportive. Patient states that she is a complicated case and is giving the doctors a run for their money. Spouse Garrett, talks about his electrical business, their Bahai samuel (they attend [employer] in [place]) and about their family unit. I provided therapeutic listening, and prayer. The patient and Garrett responded well and showed signs of greater peace. They voiced their gratitude for the visit. I will continue to remain available to patient and family.
[2024-12-04 16:35] LABS: Alanine Aminotransfer (ALT/SGP 15.0 U/L (12-78); Albumin, Blood 1.3 g/dL (3.4-5.0); Albumin/Globulin Ratio 0.4 (0.8-1.8); Anion Gap 12.0 mmol/L (3-11); Aspartate Aminotrans (AST/SGOT 15.0 U/L (12-37); Bilirubin, Total 0.8 mg/dL (0.1-1.0); Blood Urea Nitrogen 50.0 mg/dL (8-24); CO2, Blood 24.0 mmol/L (21-32); Calcium, Blood 7.5 mg/dL (8.5-10.1); Chloride, Blood 100.0 mmol/L (98-108); Creatinine, Blood 4.72 mg/dL (0.40-1.00); Globulin, Blood 3.4 g/dL (2.2-4.0); Glucose, Blood 86.0 mg/dL (70-99); Potassium, Blood 3.4 mmol/L (3.5-5.5); Sodium, Blood 133.0 mmol/L (136-145); Total Protein, Blood 4.7 g/dL (6.4-8.2)
[2024-12-04] MEDS ORDERED: NS 250 ML IV PRN (17:05)
[2024-12-04 17:22] LABS: pH Blood Venous 7.34 (7.34-7.37)
--- NOTE | 2024-12-04 18:25 | NUR ---
Palliative care supportive vist: Made visit with pt today at 1430. Spouse Garrett and daughter present. Gold Frame Assembler present for visit. Discussed current care needs. According to primary RN pt had voiced wanting to give up earlier this morning. Discussed options of comfort care with pt and family. Pt currently wanting to continue treatment. Family supportive of pt decision. Garrett voiced gratitude for information provided by care management visit today.
--- NOTE | 2024-12-04 19:36 | NUR ---
SHIFT SUMMARY: PT CONTINUES TO BE ALERT AND ORIENTED X 3, DISORIENTED TO SITUATION. PT ABLE TO FOLLOW COMMANDS AND COMMUNICATE NEEDS. PT REMAINS ON 2L OF OXYGEN VIA NASAL CANNULA WITH SPO2 ABOVE 92% NO RESP DISTRESS NOTED. PT IN SR WITH HR IN THE 70'S, FREQUENT PVC'S NOTED. AT APPROX 1200, PT WENT INTO SVT, VAGAL MANEUVERS ATTEMPTED, NO SUCCESS. AT BEDSIDE, ADENOSINE ADMINISTERED PER JUN, PT CONVERTED TO SR. PT HYPOTENSIVE T/O SHIFT DISPITE HIGH LEVELS OF PRESSORS. AWARE, ORDERS TO TITRATE LEVOPHED FOR SBP GREATER THAN 70, SEE NURSING TREATMENT ORDER. ARTLINE TO L FEMORAL IN PLACE, GOOD WAVEFORM NOTED AT THIS TIME, NO OOZING, BRUISING TO INSERTION SITE NOTED. BILATERAL NEPHRO TUBES IN PLACE TO GRAVITY, R NEPHROSTOMY DRAINING YELLOW/SEDIMENT FLUID. L NEPHROSTOMY DRAINING YELLOW, PINK TINGED FLUID, SEDIMENT NOTED. LEAL PATENT, DRAINING YELLOW URINE, THICK SEDIMENT NOTED. RECTAL TUBE IN PLACE, MINIMAL BROWN LIQUID STOOL NOTED. PT REPOSITIONED Q2HRS. PLAN OF CARE ONGOING, BED AT LOWEST LEVEL, CALL LIGHT WITHIN REACH.
[2024-12-05] VITALS (10 sets, daily range): BP systolic 71–96; BP diastolic 46–66
[2024-12-05 04:35] LABS: BASOPHILS ABSOLUTE AUTO 0.04 K/mm3 (0.00-0.23); BASOPHILS PERCENT AUTO 0 % (0-2); EOSINOPHILS ABSOLUTE AUTO 0.07 K/mm3 (0.00-0.68); EOSINOPHILS PERCENT AUTO 1 % (0-6); Hematocrit 27.6 % (33.0-51.0); Hemoglobin 9.1 g/dL (11.5-16.0); IMMATURE GRAN ABSOLUTE AUTO 0.28 K/mm3 (0.00-0.10); IMMATURE GRAN PERCENT AUTO 2 % (0-1); LYMPHOCYTES ABSOLUTE AUTO 1.92 K/mm3 (0.84-5.20); LYMPHOCYTES PERCENT AUTO 12 % (21-46); MONOCYTES ABSOLUTE AUTO 0.41 K/mm3 (0.16-1.47); MONOCYTES PERCENT AUTO 3 % (4-13); Mean Corpuscular HGB Conc 33.0 g/dL (31.5-36.5); Mean Corpuscular Volume 90 fL (80-100); NEUTROPHILS ABSOLUTE AUTO 12.71 K/mm3 (1.96-9.15); NEUTROPHILS PERCENT AUTO 82 % (41-73); NRBC ABSOLUTE 0.03 K/mm3 (0.00-0.02); NRBC Auto 0.2 /100 WBC (0.0-0.2); Platelet Count 177 K/mm3 (150-400); RDW Coefficient Variation 18.1 % (11.7-14.2); RDW Standard Deviation 57.7 fL (35.1-46.3)
[2024-12-05 04:52] LABS: Albumin, Blood 1.3 g/dL (3.4-5.0); Anion Gap 13 mmol/L (3-11); Blood Urea Nitrogen 56 mg/dL (8-24); CO2, Blood 23 mmol/L (21-32); Calcium, Blood 7.4 mg/dL (8.5-10.1); Chloride, Blood 102 mmol/L (98-108); Creatinine, Blood 4.84 mg/dL (0.40-1.00); Glucose, Blood 74 mg/dL (70-99); Magnesium, Blood 1.7 mg/dL (1.6-2.4); Phosphorus, Blood 4.3 mg/dL (2.5-4.9); Potassium, Blood 4.0 mmol/L (3.5-5.5); Sodium, Blood 134 mmol/L (136-145); Vancomycin, Random 22.3 ug/mL
[2024-12-05] MEDS ORDERED: Mag Sulfate 1 GM/D5% 100ML 100 ML IV STA (09:53)
[2024-12-05] MEDS ORDERED: Albumin (Human) 25gm/100ml 100 ML IV ONE (10:05)
--- NOTE | 2024-12-05 10:23 | NUR ---
Spiritual care visit conducted. Several family members are bedside and about to have a meeting due to further poor prognosis given. A couple of the fmaily members asked if I would pray for them. I pray that God's wisdom and direction would guide them and that they all would have peace not only in the decision but also with whatever the consequences of that decision brings. Corbin Jones, and Garrett voice their appreciation for the prayer and state that they are in a good frame of mind as they open the discussion.
[2024-12-05] MEDS ORDERED: Insulin Regular 100 UNIT/ML 10ML Vial SC SCH (11:30)
[2024-12-05] MEDS ORDERED: HYDROmorphone HCl/Pf 1MG SYR IV PRN (12:25)
[2024-12-05] MEDS ORDERED: Morphine Sulfate 10 MG/ML 1MLSYR IV PRN (14:20)
[2024-12-05] MEDS ORDERED: Morphine Sulfate 10 MG/ML 1MLSYR INH PRN ×2 (15:05→15:20)
[2024-12-05] MEDS ORDERED: Morphine Sulfate 20 MG/1ML 1 ML Oral Syringe SL PRN (16:30)
--- NOTE | 2024-12-05 17:26 | NUR ---
Spiritual care visit conducted. Two more visits withg family and patient this afternoon consisting of therapeutic listening, levity, prayer and encouragement. Family and patient responded well and expressing gratitude for the time and care.
--- NOTE | 2024-12-05 18:38 | NUR ---
Summary. Pt on comfort care since noon. Family at bedside. Pt alert and oriented x3. L/radial art line DC'd, occlusive dressing placed, small amount of swelling and bruising already at site. Pt painful with movment, declining turns this afternoon. Pt c/o difficulty "catching my breath". PRN medications administered, see EMAR. Pt remains hypotensive after pressors turned off but still alert and able to communicate. Family stated wish to pursue hospice if pt condition remains unchanged overnight. On 02 at 2 L via NC for comfort. Rectal tube and booth in place for comfort. Coccyx dressing changed this shift, picture updated, calcium alginate applied to wound. No acute changes in pt condition this afternoon.
--- NOTE | 2024-12-06 16:34 | NUR ---
TIME OF 1515, FAMILY AND ANGELICA AT BEDSIDE. BELONGINGS RETURNED TO FAMILY. LINES REMOVED. NOTIFIED.
--- NOTE | 2024-12-06 17:21 | NUR ---
CALL FROM ICU CHARGE WITH UPDATE THAT PATIENT HAD EXPERIENCED A DECLINE IN CONDITION. WHEN I ARRIVED TO THE ROOM PATIENT HAD PASSED. FAMILY AT BEDSIDE AND SPIRITUAL CARE IN THE ROOM
== END 2024-12-06 15:15 | DRG 871 ==
LOC: ER 15:07 → ICUE 19:28
PROVIDERS: Emergency Medicine; Internal Medicine Nephrology; Student in an Organized Health Care Education/Training Program; ADMIT Internal Medicine
DX: A41.81 Sepsis due to Enterococcus (principal); J18.9 Pneumonia, unspecified organism; J96.01 Acute respiratory failure with hypoxia; R65.21 Severe sepsis with septic shock; N18.6 End stage renal disease; I12.0 Hypertensive chronic kidney disease with stage 5 chronic kidney disease or end stage renal disease; E87.1 Hypo-osmolality and hyponatremia; E87.21 Acute metabolic acidosis; N13.6 Pyonephrosis; J91.8 Pleural effusion in other conditions classified elsewhere; J44.0 Chronic obstructive pulmonary disease with (acute) lower respiratory infection; Z66 Do not resuscitate; Z51.5 Encounter for palliative care; Z99.2 Dependence on renal dialysis; A41.59 Other Gram-negative sepsis; E11.42 Type 2 diabetes mellitus with diabetic polyneuropathy; E78.5 Hyperlipidemia, unspecified; M54.50 Low back pain, unspecified; G89.29 Other chronic pain; E03.9 Hypothyroidism, unspecified; L98.429 Non-pressure chronic ulcer of back with unspecified severity; E11.22 Type 2 diabetes mellitus with diabetic chronic kidney disease; F41.8 Other specified anxiety disorders; K21.9 Gastro-esophageal reflux disease without esophagitis; L89.150 Pressure ulcer of sacral region, unstageable; D63.1 Anemia in chronic kidney disease; E87.6 Hypokalemia; R51.9 Headache, unspecified; Z96.0 Presence of urogenital implants; M54.2 Cervicalgia; E86.9 Volume depletion, unspecified; E87.70 Fluid overload, unspecified; E88.09 Other disorders of plasma-protein metabolism, not elsewhere classified; Z79.82 Long term (current) use of aspirin; Z79.4 Long term (current) use of insulin; Z79.890 Hormone replacement therapy; Z79.899 Other long term (current) drug therapy; Z98.890 Other specified postprocedural states; Z88.8 Allergy status to other drugs, medicaments and biological substances; W18.30XA Fall on same level, unspecified, initial encounter
CPT/HCPCS: 36415; 36556; 36620; 50432; 51702; 70450; 71045; 71260; 72125; 74177; 76937; 80053; 80069; 80202; 81001; 82803; 82947; 83605; 83735; 84100; 85014; 85018; 85025; 87040; 87077; 87086; 87186; 93005; 93010; 93306; 94640; 94664; 96365-59; 99152; 99153; 99285-25; A9270; C1729; C1751; C1769; C1894; J0153; J0282; J0881; J1171; J1644; J1720; J1815; J1938; J2185; J2250; J2270; J2543; J3010; J3373; J3475; J3480; J7030; J7040; J7050; J7120; P9045; P9047; Q9967